=== PATIENT | male | born 1945 | race Hispanic/Latino ===

== ENCOUNTER 2018-02-15 21:00 | Emergency (ER) | payer OTHER ==
--- NOTE | 2018-02-15 21:56 | EDPHYS ---
Physician Documentation [facility] Name: Weston Garcia Age: 72 yrs Sex: Male : 1945 Arrival Date: 02/15/2018 Time: 21:00 Bed 6 Private MD: ED Physician Rubio Israel HPI: 02/15 21:52 This 72 yrs old Male presents to ER via Wheelchair with complaints of gs Constipation. 21:52 The patient presents to the emergency department with constipation. Onset: The gs symptoms/episode began/occurred 3 day(s) ago. 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 Modifying factors: The symptoms are alleviated by nothing, The symptoms are aggravated by nothing. Associate signs and symptoms: Pertinent negatives: abdominal pain, fever, vomiting. The patient has experienced similar episodes in the past, chronically. Historical: - Allergies: 21:19 Naproxen; lp1 - Home Meds: 21:19 Amitiza 8 mcg Oral cap 1 cap 2 times per day [Active]; aspirin 325 mg Oral tab 1 tab lp1 once daily [Active]; finasteride 5 mg Oral tab 1 tab once daily [Active]; gabapentin 300 mg Oral cap daily [Active]; Humulin 70/30 100 unit/mL (70-30) Sub-Q susp 40 unit twice a day [Active]; losartan 50 mg Oral tab 1 tab 2 times per day [Active]; metformin 1,000 mg Oral tab 1 tab 2 times per day [Active]; omeprazole 40 mg Oral cpDR 1 cap 2 times per day [Active]; tamsulosin 0.4 mg Oral cp24 1 cap once daily [Active]; pentoxifylline 400 mg oral TbER daily [Active]; - PMHx: 21:19 CVA; Diabetes - NIDDM; Hypertension; lp1 - PSHx: 21:19 Appendectomy; cataracts; amputations to right toes; lp1 - Immunization history:: Adult Immunizations up to date. - Social history:: Smoking status: Patient/guardian denies using tobacco. ROS: 21:52 All other systems are negative. gs Exam: 21:52 ENT: Nares patent. No nasal discharge, no septal abnormalities noted. Tympanic gs membranes are normal and external auditory canals are clear. Oropharynx with no redness, swelling, or masses, exudates, or evidence of obstruction, uvula midline. Mucous membranes moist. Cardiovascular: Regular rate and rhythm with a normal S1 and S2. No gallops, murmurs, or rubs. Normal PMI, no JVD. No pulse deficits. Respiratory: Lungs have equal breath sounds bilaterally, clear to auscultation and percussion. No rales, rhonchi or wheezes noted. No increased work of breathing, no retractions or nasal flaring. Abdomen/GI: Soft, non-tender, with normal bowel sounds. No distension or tympany. No guarding or rebound. No evidence of tenderness throughout. Back: No spinal tenderness. No costovertebral tenderness. Full range of motion. Skin: Warm, dry with normal turgor. Normal color with no rashes, no lesions, and no evidence of cellulitis. MS/ Extremity: Pulses equal, no cyanosis. Neurovascular intact. Full, normal range of motion. Neuro: Awake and alert, GCS 15, oriented to person, place, time, and situation. Cranial nerves II-XII grossly intact. Motor strength 5/5 in all extremities. Sensory grossly intact. Cerebellar exam normal. Normal gait. 21:52 Constitutional: The patient appears alert, awake. 21:52 Abdomen/GI: Rectal exam: Stool: brown, fecal impaction, is not appreciated. Vital Signs: 21:16 BP 160 / 85; Pulse 87; Resp 18; Temp 98.0(O); Pulse Ox 97% on R/A; Weight 102.06 kg; lp1 Height 5 ft. 9 in. (175.26 cm); 21:16 Body Mass Index 33.23 (102.06 kg, 175.26 cm) lp1 MDM: 21:47 Patient medically screened. gs 21:52 Differential diagnosis: constipation, impaction. Data reviewed: vital signs, nurses gs notes. Response to treatment: the patient's symptoms have markedly improved after treatment, and as a result, I will discharge patient. Administered Medications: No medications were administered Disposition: 02/15/18 21:56 Discharged to Home. Impression: Constipation. - Condition is Stable. - Discharge Instructions: Constipation, Adult, [id number]. - Medication Reconciliation Form, Thank You Letter, Antibiotic Education, Prescription Opioid Use form. - Follow up: Abdirizak Cortes MD; When: 1 - 2 days; Reason: Re-evaluation by your physician. Signatures: Tonya Scanlon RN RN lp1 Nicole Talbot RN RN tl2 Rubio Israel MD MD
--- NOTE | 2018-02-15 21:56 | ER ---
Nurse's Notes [facility] Name: Weston Garcia Age: 72 yrs Sex: Male : 1945 Arrival Date: 02/15/2018 Time: 21:00 Bed 6 Private MD: Diagnosis: Constipation Presentation: 02/15 21:14 Presenting complaint: Patient states: Constipation x3 days, hx of constipation; drank lp1 Mag citrate 3 hours ago with very small BM; continuing to feel bloated, abdomen distended. Transition of care: patient was not received from another setting of care. Onset of symptoms was February 15, 2018. Care prior to arrival: None. 21:14 Method Of Arrival: Wheelchair lp1 21:14 Acuity: GIRISH 3 lp1 Historical: - Allergies: 21:19 Naproxen; lp1 - Home Meds: 21:19 Amitiza 8 mcg Oral cap 1 cap 2 times per day [Active]; aspirin 325 mg Oral tab 1 tab lp1 once daily [Active]; finasteride 5 mg Oral tab 1 tab once daily [Active]; gabapentin 300 mg Oral cap daily [Active]; Humulin 70/30 100 unit/mL (70-30) Sub-Q susp 40 unit twice a day [Active]; losartan 50 mg Oral tab 1 tab 2 times per day [Active]; metformin 1,000 mg Oral tab 1 tab 2 times per day [Active]; omeprazole 40 mg Oral cpDR 1 cap 2 times per day [Active]; tamsulosin 0.4 mg Oral cp24 1 cap once daily [Active]; pentoxifylline 400 mg oral TbER daily [Active]; - PMHx: 21:19 CVA; Diabetes - NIDDM; Hypertension; lp1 - PSHx: 21:19 Appendectomy; cataracts; amputations to right toes; lp1 - Immunization history:: Adult Immunizations up to date. - Social history:: Smoking status: Patient/guardian denies using tobacco. Screenin:20 Abuse screen: Denies threats or abuse. Denies injuries from another. Nutritional lp1 screening: No deficits noted. Tuberculosis screening: No symptoms or risk factors identified. 21:40 Fall Risk None identified. bs1 Assessment: 21:33 General: Appears in no apparent distress. uncomfortable, Behavior is calm, cooperative, bs1 appropriate for age. Pain: Denies pain. Neuro: Level of Consciousness is awake, alert, obeys commands, Oriented to person, place, time. Cardiovascular: Denies chest pain, palpitations, shortness of breath, Heart tones S1 S2 present Capillary refill < 3 seconds Patient's skin is warm and dry. Respiratory: Airway is patent Trachea midline Respiratory effort is even, unlabored, Respiratory pattern is regular, symmetrical, Breath sounds are clear bilaterally. GI: Abdomen is round distended, Bowel sounds hypoactive in right upper quadrant, left upper quadrant, right lower quadrant and left lower quadrant Abd is non tender X 4 quads firm Reports gaseousness, Patient currently denies abdominal pain, diarrhea, epigastric pain, nausea, vomiting. : No deficits noted. No signs and/or symptoms were reported regarding the genitourinary system. EENT: No deficits noted. No signs and/or symptoms were reported regarding the EENT system. Derm: No deficits noted. No signs and/or symptoms reported regarding the dermatologic system. Derm: Musculoskeletal: Circulation, motion, and sensation intact. Capillary refill < 3 seconds, Range of motion: intact in all extremities. 22:01 Reassessment: Patient appears in no apparent distress at this time. Patient and/or tl2 family updated on plan of care and expected duration. Pain level reassessed. Patient is alert, oriented x 3, equal unlabored respirations, skin warm/dry/pink. Pt had a BM and is feeling better. Pt and family verbalized understanding of discharge instructions, need for follow up. Vital Signs: 21:16 BP 160 / 85; Pulse 87; Resp 18; Temp 98.0(O); Pulse Ox 97% on R/A; Weight 102.06 kg; lp1 Height 5 ft. 9 in. (175.26 cm); 21:16 Body Mass Index 33.23 (102.06 kg, 175.26 cm) lp1 ED Course: 21:00 Patient arrived in ED. ds1 21:16 Triage completed. lp1 21:16 Arm band placed on left wrist. lp1 21:33 Bonny Gillette RN is Primary Nurse. bs1 21:35 Rubio Israel MD is Attending Physician. gs 21:40 Patient has correct armband on for positive identification. Placed in gown. Bed in low bs1 position. Pulse ox on. NIBP on. 21:55 Abdirizak Cortes MD is Referral Physician. 22:01 No provider procedures requiring assistance completed. Patient did not have IV access tl2 during this emergency room visit. Administered Medications: No medications were administered Outcome: 21:56 Discharge ordered by . 22:01 Discharged to home via wheelchair. tl2 22:01 Condition: stable 22:01 Discharge instructions given to patient, family, Instructed on discharge instructions, follow up and referral plans. Demonstrated understanding of instructions, follow-up care. 22:08 Patient left the ED. tl2 Signatures: Nneka Boykin ds1 Tonya Scanlon, RN RN lp1 Nicole Talbot RN RN tl2 Rubio Israel MD MD Bonny Gillette RN RN bs1
[2018-02-15 22:18] VITALS: BP 160/85; TEMP 98; O2SAT 97
== END 2018-02-15 22:08 | disposition home or self-care (01) ==
LOC: ER 21:00
DX: K59.00 Constipation, unspecified (principal); I10 Essential (primary) hypertension; E11.9 Type 2 diabetes mellitus without complications; Z86.73 Personal history of transient ischemic attack (TIA), and cerebral infarction without residual deficits; Z79.82 Long term (current) use of aspirin; Z79.4 Long term (current) use of insulin; Z88.6 Allergy status to analgesic agent
CPT/HCPCS: 99283

== ENCOUNTER 2018-06-05 07:00 | Day surgery (SDC) | payer OTHER ==
--- NOTE | 2018-06-04 13:46 | RAD REPORT ---
EXAM DESCRIPTION: Bill Lugo (2 Views)06/04/2018 1:40 pm CLINICAL HISTORY: Hypertension/ preop for cardiac catheterization COMPARISON: 2017 FINDINGS: The lungs appear clear of acute infiltrate. The heart is mildly enlarged IMPRESSION: No acute abnormalities displayed
[2018-06-04 13:57] LABS: Absolute Lymphocytes (CBC) 2.3 K/uL (0.7-4.9); Absolute Monocytes 0.6 K/uL (0.1-1.3); Absolute Neutrophil 3.3 K/uL (1.8-8.0); Basophils % 0.5 % (0-1.3); Eosinophils % 3.3 % (0-4.4); Hematocrit 45.7 % (39.6-49.0); Lymphocytes % 35.3 % (15.3-44.8); MCH 31.9 pg (27.0-35.0); MCV 94.4 fL (80-100); MPV 8.3 fL (7.6-11.3); Monocytes % 9.4 % (3.3-12.3); RBC Red Blood Cell Count 4.85 M/uL (4.33-5.43)
[2018-06-04 14:05] LABS: Protime INR 0.94
[2018-06-04 14:11] LABS: Potassium 5.1 mmol/L (3.5-5.1)
--- NOTE | 2018-06-04 14:39 | EKG ---
Test Date: 2018-06-04 Test Time: 13:51:12 Technical Supervisor: GLEN MEASUREMENT RESULTS: Intervals: Rate: 72 MN: 164 QRSD: 106 QT: 376 QTc: 411 [place]: P: 40 MN: 164 QRS: -33 T: -57 INTERPRETIVE STATEMENTS: Normal sinus rhythm Left axis deviation Inferior infarct, age undetermined Abnormal ECG Compared to ECG 12/27/2016 09:33:43 No significant changes Electronically Signed On 06-04-18 14:39:13 CDT by Sharif Streeter
[2018-06-05] MEDS ORDERED: NA CHLORIDE 0.9% 500 ML ONE (07:23)
[2018-06-05] MEDS ORDERED: MIDAZOLAM HCL 2 MG/2 ML INJ ONE (08:17)
[2018-06-05] MEDS ORDERED: FENTANYL CITR 100 MCG/2 ML ONE (08:17)
[2018-06-05] MEDS ORDERED: ATROPINE SULF 1 MG/10 ML SYR IV ONE (08:18)
[2018-06-05] MEDS ORDERED: HEPA 1000U/500MLS 1,000 UNIT/500 ML BAG IV ONE (08:18)
[2018-06-05] MEDS ORDERED: NA CHLORIDE 0.9% 0 ML ONE (08:18)
[2018-06-05] MEDS ORDERED: LIDOCAINE 1% MPF 2 ML AMPULE ONE (08:19)
[2018-06-05] MEDS ORDERED: NA CHLORIDE 0.9% 0 ML IV ONE (08:51)
[2018-06-05] MEDS ORDERED: CLOPIDOGREL 75 MG TABLET ONE (09:10)
[2018-06-05 09:25] VITALS: TEMP 97
[2018-06-05 10:54] VITALS: BP 142/66; O2SAT 99
--- NOTE | 2018-06-05 18:27 | OP ---
Surgeon: Mehrdad Aguirre MD Wood Router Hand: Dolores Gomez. The case will be discussed with the family. The patient is a patient of Dr. Sharif. He is 73 years old. He was admitted to the hospital as an outp atient for left heart catheterization. Indication For The Procedure: Multiple risk factors including hypertension, diabetes, dyslipidemia, and positive stress test and chest pain. Description Of Procedure: Mr. Christensen was brought to the director labor standards, given 2 mg of Versed and 25 mg of f entanyl for IV sedation. A 6-Portuguese sheath was introduced in the right common femoral artery. A 6-F rench catheters were used, Tacho for diagnostic catheterization. He was found to have moderate dif fuse plaquing in the OM and LAD territory without any focal stenosis. His left main was normal. He had severe right coronary artery disease. Multiple sequential lesions, almost 6 of them with aneurys ms right at the stenosis areas pre-and poststenotic dilatation. Ejection fraction is noted to be 55% by Lexiscan. Complications: None. Blood Loss: 5 cc. Postoperative Diagnosis: Coronary artery disease, severe in the right coronary artery territory. Plan: Bring him back and do an angioplasty and stent on the RCA. He will require a long procedure, significant amount of contrast. He is a diabetic, and I did not want to risk his kidneys today. I w ill stage him, schedule next week for an intervention of his right coronary artery. He will be loade d on Plavix today 300 mg, given 75 mg daily of Plavix to take home. He will hold his Glucophage for 48 hours. Total Conscious Sedation: 30 minutes NB/MODL Voice ID: [id number] Report ID: [id number]
== END 2018-06-05 11:02 | disposition home or self-care (01) ==
LOC: CCL 07:00
PROC: 4A023N7 Measurement of Cardiac Sampling and Pressure, Left Heart, Percutaneous Approach (ICD-10-PCS; principal; 2018-06-05)
PROC: B211YZZ Fluoroscopy of Multiple Coronary Arteries using Other Contrast (ICD-10-PCS; 2018-06-05)
DX: I25.10 Atherosclerotic heart disease of native coronary artery without angina pectoris (principal); I70.213 Atherosclerosis of native arteries of extremities with intermittent claudication, bilateral legs; E11.9 Type 2 diabetes mellitus without complications; I25.5 Ischemic cardiomyopathy; I10 Essential (primary) hypertension; F17.210 Nicotine dependence, cigarettes, uncomplicated; E78.5 Hyperlipidemia, unspecified
CPT/HCPCS: 36415; 71046; 80048; 82962 ×2; 85025; 85610; 85730; 93005; 93454; C1893; J2001; J2250; J3010; J0583

== ENCOUNTER 2018-06-12 09:15 | Day surgery (SDC) | payer OTHER ==
[2018-06-12] MEDS ORDERED: NA CHLORIDE 0.9% 500 ML ONE ×2 (09:40→11:55)
[2018-06-12] MEDS ORDERED: ATROPINE SULF 1 MG/10 ML SYR IV ONE (12:51)
[2018-06-12] MEDS ORDERED: HEPA 1000U/500MLS 1,000 UNIT/500 ML BAG IV ONE (12:51)
[2018-06-12] MEDS ORDERED: NA CHLORIDE 0.9% 50 ML ONE ×2 (12:51→14:10)
[2018-06-12] MEDS ORDERED: MIDAZOLAM HCL 2 MG/2 ML INJ ONE (12:59)
[2018-06-12] MEDS ORDERED: FENTANYL CITR 100 MCG/2 ML ONE (12:59)
[2018-06-12] MEDS ORDERED: ASPIRIN 325 MG TAB ONE ×2 (14:25→14:26)
[2018-06-12] MEDS ORDERED: CLOPIDOGREL 75 MG TABLET ONE ×2 (14:25→14:26)
[2018-06-12] MEDS ORDERED: NITROGLYCERIN 0.4 MG/TAB SL PRN (15:35)
[2018-06-12] MEDS ORDERED: ACETAMINOPHEN 325 MG TABLET PO PRN (15:35)
[2018-06-12] MEDS: NA CHLORIDE 0.9% 1,000 ML IV SCH (16:16)
[2018-06-12 16:20] VITALS: BMI 38.4
[2018-06-12] MEDS ORDERED: MORPHINE 5 MG/ML VIAL IV PRN (20:15)
[2018-06-12] MEDS ORDERED: ZOLPIDEM TARTRATE 5 MG TABLET PO SCH (21:00)
[2018-06-13 05:02] LABS: Absolute Lymphocytes (CBC) 1.5 K/uL (0.7-4.9); Absolute Monocytes 0.6 K/uL (0.1-1.3); Absolute Neutrophil 5.2 K/uL (1.8-8.0); Basophils % 0.3 % (0-1.3); Eosinophils % 1.5 % (0-4.4); Hematocrit 43.2 % (39.6-49.0); Lymphocytes % 19.9 % (15.3-44.8); MCH 32.2 pg (27.0-35.0); MCV 92.3 fL (80-100); MPV 8.4 fL (7.6-11.3); Monocytes % 8.5 % (3.3-12.3); RBC Red Blood Cell Count 4.68 M/uL (4.33-5.43)
[2018-06-13 05:17] LABS: Potassium 4.3 mmol/L (3.5-5.1)
[2018-06-13] MEDS: NA CHLORIDE 0.9% 1,000 ML IV SCH ×2 (06:18→09:16)
[2018-06-13] MEDS ORDERED: LIDOCAINE 1% MPF 5 ML VIAL ONE (08:02)
[2018-06-13 08:06] VITALS: BP 115/54; TEMP 97.2
[2018-06-13] MEDS ORDERED: ASPIRIN EC 81 MG TAB PO SCH (09:00)
[2018-06-13] MEDS ORDERED: CLOPIDOGREL 75 MG TABLET PO SCH (09:00)
[2018-06-13 09:31] VITALS: O2SAT 97
--- NOTE | 2018-06-13 12:36 | DS ---
Discharge Diagnosis: Unstable angina. Hospital Course: He had several intracoronary stents placed in his right coronary artery. He has do ne well overnight, not having chest pain. No groin problems. Vital signs are okay. He will be disc harged today. We will hold his metformin for 2 days, resume it on June 15. He will be on Plavix. He will stop taking omeprazole because of its ability to inactivate Plavix. He will be on aspirin and Plavix, a large dose statin. Resume all of his medications, except as outlined above. LISA Voice ID: [id number] Report ID: [id number]
--- NOTE | 2018-06-13 14:36 | EKG ---
Test Date: 2018-06-13 Test Time: 07:25:40 Data Sme: BILLY MEASUREMENT RESULTS: Intervals: Rate: 82 MD: 164 QRSD: 98 QT: 376 QTc: 439 [place]: P: 48 MD: 164 QRS: -24 T: -29 INTERPRETIVE STATEMENTS: Sinus rhythm with occasional premature ventricular complexes Inferior infarct, age undetermined Abnormal ECG Compared to ECG 06/04/2018 13:51:12 Ventricular premature complex(es) now present Left-axis deviation no longer present Myocardial infarct finding still present Electronically Signed On 06-13-18 14:34:52 CDT by Sharif Streeter
--- NOTE | 2018-06-13 17:03 | OP ---
Surgeon: Mehrdad Aguirre MD Book Repairer: Carlos Fleming The patient will be observed overnight and sent home tomorrow and I will see him in the office in 2 w eeks. Indications And Procedure: Admitted to myself as an outpatient for catheterization to include a RCA stent. The patient is a 73-year-old, had a catheterization last week showing severe stenosis in the RCA and multiple lesions. I did not want to do the procedure then because of possible high load of t he contrast. He was scheduled to come back for RCA stent today. He was prepped and draped in the ro utine sterile fashion, given 2 mg of Versed for IV sedation. A 6-Persian sheath was introduced in the right common femoral artery. A JR4 guide 6-Persian with side hole cannula was used to cannulate the RCA. A [place] wire was used to cross the lesions. He had 3 stents placed, 1 in the distal RCA, 1 in the mid RCA, and 1 in the proximal RCA. The proximal RCA and mid RCA stents were stented with 3.5 x 16 Synergy stent and distal was 3.0 x 16 Synergy as well with 0% residual. The patient tolerated th e procedure well. There were no complications. Blood loss was 5 cc. Total conscious sedation was 6 0 minutes. The patient received Angiomax during the procedure, aspirin as well as 300 mg of Plavix. Final Diagnosis: Coronary artery disease, status post successful PTCA and stent of the RCA. Angiopl asty was performed with a 2.5 x 15 Emerge balloon throughout the RCA prior to stenting. Neonatal Critical Care Nurse: Mehrdad Aguirre MD. DULCE/EARL Voice ID: [id number] Report ID: [id number]
== END 2018-06-13 10:42 | disposition home or self-care (01) ==
LOC: CCL 09:15 → 4TH 14:49 → CCL 06-13 10:42
PROC: 027036Z Dilation of Coronary Artery, One Artery with Three Drug-eluting Intraluminal Devices, Percutaneous Approach (ICD-10-PCS; principal; 2018-06-12)
DX: I25.110 Atherosclerotic heart disease of native coronary artery with unstable angina pectoris (principal); E11.9 Type 2 diabetes mellitus without complications; I10 Essential (primary) hypertension; F17.210 Nicotine dependence, cigarettes, uncomplicated; I25.5 Ischemic cardiomyopathy; I70.213 Atherosclerosis of native arteries of extremities with intermittent claudication, bilateral legs; K21.9 Gastro-esophageal reflux disease without esophagitis; Z79.84 Long term (current) use of oral hypoglycemic drugs
CPT/HCPCS: 36415; 80048; 80061; 82962 ×4; 85025; 85347 ×2; 92928; 93005; C1725; C1760; C1893; C9600; J0583 ×2; J2250; J3010; J7030

== ENCOUNTER 2018-06-19 12:24 | Emergency (ER) | payer OTHER ==
[2018-06-19 14:11] LABS: Albumin 3.1 g/dL (3.4-5.0); Bilirubin Direct 0.1 mg/dL (0-0.2); Bilirubin Total 0.4 mg/dL (0.2-1.0); Potassium 4.8 mmol/L (3.5-5.1); Protein, Total 6.9 g/dL (6.4-8.2)
[2018-06-19 14:30] LABS: Absolute Lymphocytes (CBC) 1.2 K/uL (0.7-4.9); Absolute Monocytes 0.6 K/uL (0.1-1.3); Absolute Neutrophil 5.8 K/uL (1.8-8.0); Basophils % 0.3 % (0-1.3); Eosinophils % 2.2 % (0-4.4); Hematocrit 43.8 % (39.6-49.0); Lymphocytes % 15.9 % (15.3-44.8); MCH 32.2 pg (27.0-35.0); MCV 94.8 fL (80-100); MPV 8.8 fL (7.6-11.3); Monocytes % 7.4 % (3.3-12.3); RBC Red Blood Cell Count 4.62 M/uL (4.33-5.43)
[2018-06-19] MEDS ORDERED: NA CHLORIDE 0.9% 1,000 ML ONE (15:04)
[2018-06-19] MEDS ORDERED: INSULIN -REGULAR HUMAN 50 UNIT/0.5 ML ML ONE (15:04)
--- NOTE | 2018-06-19 16:06 | EDPHYS ---
Physician Documentation [facility] Name: Weston Garcia Age: 73 yrs Sex: Male : 1945 Arrival Date: 06/19/2018 Time: 12:28 Bed 24 Private MD: Raymundo Perez ED Physician Myke Gee HPI: 06/19 13:26 This 73 yrs old Male presents to ER via Wheelchair with complaints of High jr8 Blood Sugar. 13:26 Onset: The symptoms/episode began/occurred acutely, today. Associated signs and jr8 symptoms: Pertinent positives: fatigue, dizziness, headache . Current symptoms: In the emergency department the patient's symptoms are unchanged from the initial presentation. The patient has not experienced similar symptoms in the past. The patient has been recently seen by a physician: with different complaint(s). Patient had recent stents placed last week. Stated that he had been doing well. Sugars markedly elevated compared to what they normally run today. Has had some dizziness, headache, fatigue. Denies CP or shortness of breath . 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 - Social history:: Smoking status: Patient/guardian denies using tobacco. - Ebola Screening: : No symptoms or risks identified at this time. ROS: 13:26 Eyes: Negative for injury, pain, redness, and discharge, ENT: Negative for injury, jr8 pain, and discharge, Neck: Negative for injury, pain, and swelling, Cardiovascular: Negative for chest pain, palpitations, and edema, Respiratory: Negative for shortness of breath, cough, wheezing, and pleuritic chest pain, Abdomen/GI: Negative for abdominal pain, nausea, vomiting, diarrhea, and constipation, Back: Negative for injury and pain, MS/Extremity: Negative for injury and deformity, Skin: Negative for injury, rash, and discoloration. 13:26 Constitutional: Positive for fatigue, Negative for body aches, chills, fever, malaise, poor PO intake, weight loss. 13:26 Neuro: Positive for dizziness, headache, Negative for altered mental status, gait disturbance, hearing loss, loss of consciousness, numbness, seizure activity, speech changes, syncope, near syncope, tingling, tinnitus, tremor, visual changes, weakness. Exam: 13:26 Eyes: Pupils equal round and reactive to light, extra-ocular motions intact. Lids and jr8 lashes normal. Conjunctiva and sclera are non-icteric and not injected. Cornea within normal limits. Periorbital areas with no swelling, redness, or edema. ENT: Nares patent. No nasal discharge, no septal abnormalities noted. Tympanic membranes are normal and external auditory canals are clear. Oropharynx with no redness, swelling, or masses, exudates, or evidence of obstruction, uvula midline. Mucous membranes moist. Neck: Trachea midline, no thyromegaly or masses palpated, and no cervical lymphadenopathy. Supple, full range of motion without nuchal rigidity, or vertebral point tenderness. No Meningismus. Cardiovascular: Regular rate and rhythm with a normal S1 and S2. No gallops, murmurs, or rubs. Normal PMI, no JVD. No pulse deficits. 1+ pitting edema noted to lower extremities Respiratory: Lungs have equal breath sounds bilaterally, clear to auscultation and percussion. No rales, rhonchi or wheezes noted. No increased work of breathing, no retractions or nasal flaring. Abdomen/GI: Soft, non-tender, with normal bowel sounds. No distension or tympany. No guarding or rebound. No evidence of tenderness throughout. Back: No spinal tenderness. No costovertebral tenderness. Full range of motion. Skin: Warm, dry with normal turgor. Normal color with no rashes, no lesions, and no evidence of cellulitis. MS/ Extremity: Pulses equal, no cyanosis. Neurovascular intact. Full, normal range of motion. Neuro: Awake and alert, GCS 15, oriented to person, place, time, and situation. Cranial nerves II-XII grossly intact. Motor strength 5/5 in all extremities. Sensory grossly intact. Cerebellar exam normal. Normal gait. Vital Signs: 12:39 BP 115 / 73; Pulse 72; Resp 15; Temp 98.1; Pulse Ox 100% on R/A; Pain 5/10; hb 13:02 BP 118 / 61 LA Supine (auto/); Pulse 81; Temp 98.1; Pulse Ox 93% on R/A; jp3 14:00 BP 125 / 67 LA Sitting (auto/reg); Pulse 75; Resp 16; Pulse Ox 95% ; jp3 15:11 BP 131 / 76; Pulse 69; Resp 16; Pulse Ox 98% on R/A; kr2 16:25 BP 122 / 71; Pulse 66; Resp 17; Pulse Ox 97% on R/A; kr2 MDM: 13:23 Patient medically screened. [facility] 16:04 Data reviewed: vital signs, nurses notes, lab test result(s), and as a result, I will jr8 discharge patient. Data interpreted: Pulse oximetry: on room air is 98 %. Interpretation: normal. Counseling: I had a detailed discussion with the patient and/or guardian regarding: the historical points, exam findings, and any diagnostic results supporting the discharge/admit diagnosis, lab results, the need for outpatient follow up, a family practitioner, to return to the emergency department if symptoms worsen or persist or if there are any questions or concerns that arise at home. Response to treatment: the patient's symptoms have markedly improved after treatment, patient is well hydrated. 06/19 13:23 Order name: Basic Metabolic Panel [facility] 06/19 13:23 Order name: CBC with Diff 06/19 13:23 Order name: Creatinine for Radiology [facility] 06/19 13:23 Order name: Hepatic Function [facility] 06/19 14:11 Order name: Basic Metabolic Panel; Complete Time: 14:51 EDMS 06/19 14:11 Order name: Liver (Hepatic) Function; Complete Time: 14:51 EDMS 06/19 13:23 Order name: IV Saline Lock; Complete Time: 14:09 [facility] 06/19 13:23 Order name: Labs collected and sent; Complete Time: 14:09 [facility] 06/19 14:11 Order name: Creatinine (Radiology Only); Complete Time: 14:51 EDMS 06/19 14:32 Order name: CBC with Automated Diff; Complete Time: 14:51 EDMS 06/19 15:17 Order name: Glucose, Ancillary Testing; Complete Time: 15:23 EDMS 06/19 13:23 Order name: Glucose Level; Complete Time: 14:09 [facility] Administered Medications: 15:04 Drug: NS 0.9% 1000 ml Route: IV; Rate: 1000 ml; Site: right antecubital; kr2 16:15 Follow up: Response: No adverse reaction; IV Status: Completed infusion kr2 15:04 Drug: Insulin Regular Human 10 units {Co-Signature: gerri (Milton Carr RN).} Route: kr2 IVP; Site: right antecubital; 15:35 Follow up: Response: No adverse reaction; Blood sugar is lowered kr2 Point of Care Testing: Blood Glucose: 12:37 Blood Glucose: 314 mg/dL; hb 15:34 Blood Glucose: 211 mg/dL; kr2 Ranges: Critical Glucose Levels:Adult <50 mg/dl or >400 mg/dl <40 mg/dl or >180 mg/dl Disposition: 19:06 Co-signature as Attending Physician, Myke Gee MD. rn Disposition: 06/19/18 16:05 Discharged to Home. Impression: Type 2 diabetes mellitus with hyperglycemia. - Condition is Stable. - Discharge Instructions: Type 2 Diabetes Mellitus, Diagnosis, Adult, Hyperglycemia. - Medication Reconciliation Form, Thank You Letter, Antibiotic Education, Prescription Opioid Use form. - Follow up: Private Physician; When: 2 - 3 days; Reason: Recheck today's complaints, Continuance of care, Re-evaluation by your physician. - Problem is new. - Symptoms have improved. Signatures: Dispatcher [employer] EDMS Myke Gee MD MD rn Roszak, Josh, PA PA jr8 Malika Reyes RN RN Kika Nance RN RN kr2 Milton Carr RN rv Corrections: (The following items were deleted from the chart) 16:26 16:05 06/19/2018 16:05 Discharged to Home. Impression: Type 2 diabetes mellitus with kr2 hyperglycemia. Condition is Stable. Forms are Medication Reconciliation Form, Thank You Letter, Antibiotic Education, Prescription Opioid Use. Follow up: Private Physician; When: 2 - 3 days; Reason: Recheck today's complaints, Continuance of care, Re-evaluation by your physician. Problem is new. Symptoms have improved. jr8
--- NOTE | 2018-06-19 16:06 | ER ---
Nurse's Notes [facility] Name: Weston Garcia Age: 73 yrs Sex: Male : 1945 Arrival Date: 06/19/2018 Time: 12:28 Bed 24 Private MD: Raymundo Perez Diagnosis: Type 2 diabetes mellitus with hyperglycemia Presentation: 06/19 12:37 Presenting complaint: Patient states: Home BGL reading 333. Pt reports he "just doesn't hb feel well" and has headache. Transition of care: patient was not received from another setting of care. Onset of symptoms was June 19, 2018 at 11:00. Risk Assessment: Do you want to hurt yourself or someone else? Patient reports no desire to harm self or others. 12:37 Method Of Arrival: Wheelchair hb 12:37 Acuity: GIRISH 3 hb 14:20 Initial Sepsis Screen: Does the patient meet any 2 criteria? No. Patient's initial kr2 sepsis screen is negative. Does the patient have a suspected source of infection? No. Patient's initial sepsis screen is negative. Care prior to arrival: None. 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 - Social history:: Smoking status: Patient/guardian denies using tobacco. - Ebola Screening: : No symptoms or risks identified at this time. Screenin:18 Abuse screen: Denies threats or abuse. Denies injuries from another. Nutritional ss screening: No deficits noted. Tuberculosis screening: Never had TB. Fall Risk None identified. Assessment: 13:16 General: Appears in no apparent distress. comfortable, Behavior is calm, cooperative, ss Denies fever, chills. General: and daughter report that patient's blood sugar has been elevated since yesterday. . Pain: Denies pain. Neuro: Level of Consciousness is awake, alert, obeys commands. Cardiovascular: Heart tones S1 S2 present Capillary refill < 3 seconds is brisk in bilateral fingers Patient's skin is warm and dry. Respiratory: Breath sounds are clear in right upper lobe, left upper lobe, right middle lobe, left posterior upper lobe, right posterior upper lobe, left posterior lower lobe and right posterior middle lobe Breath sounds are diminished in right posterior lower lobe Denies cough, shortness of breath. GI: Abdomen is round non-distended. : No signs and/or symptoms were reported regarding the genitourinary system. EENT: Nares are clear. Derm: Skin is intact, is healthy with good turgor, Skin is dry, Skin is pink, warm \\T\\ dry. normal. Musculoskeletal: Circulation, motion, and sensation intact. Range of motion: intact in all extremities, Swelling absent. 14:15 Reassessment: Patient appears in no apparent distress at this time. Patient and/or kr2 family updated on plan of care and expected duration. Pain level reassessed. Patient is alert, oriented x 3, equal unlabored respirations, skin warm/dry/pink. 15:10 Reassessment: Patient appears in no apparent distress at this time. Patient and/or kr2 family updated on plan of care and expected duration. Pain level reassessed. Patient is alert, oriented x 3, equal unlabored respirations, skin warm/dry/pink. Patient denies pain at this time. 16:25 Reassessment: Patient appears in no apparent distress at this time. Patient and/or kr2 family updated on plan of care and expected duration. Pain level reassessed. Patient is alert, oriented x 3, equal unlabored respirations, skin warm/dry/pink. Patient denies pain at this time. Patient states feeling better. Patient states symptoms have improved. Vital Signs: 12:39 BP 115 / 73; Pulse 72; Resp 15; Temp 98.1; Pulse Ox 100% on R/A; Pain 5/10; hb 13:02 BP 118 / 61 LA Supine (auto/); Pulse 81; Temp 98.1; Pulse Ox 93% on R/A; jp3 14:00 BP 125 / 67 LA Sitting (auto/reg); Pulse 75; Resp 16; Pulse Ox 95% ; jp3 15:11 BP 131 / 76; Pulse 69; Resp 16; Pulse Ox 98% on R/A; kr2 16:25 BP 122 / 71; Pulse 66; Resp 17; Pulse Ox 97% on R/A; kr2 ED Course: 12:28 Patient arrived in ED. sb2 12:28 Prezas, Raymundo, DO is Private Physician. sb2 12:38 Triage completed. hb 12:39 Arm band placed on right wrist. hb 13:00 Kika Lanier, RN is Primary Nurse. kr2 13:07 Dany Rea PA is PHCP. jr8 13:07 Myke Gee MD is Attending Physician. jr8 13:18 Patient has correct armband on for positive identification. Bed in low position. Call ss light in reach. 13:18 Inserted saline lock: 20 gauge in right antecubital area, using aseptic technique. ss Blood collected. 13:48 Pulse ox on. NIBP on. jp3 14:39 Basic Metabolic Panel Sent. jp3 14:39 CBC with Diff Sent. jp3 14:39 Creatinine for Radiology Sent. jp3 14:39 Hepatic Function Sent. jp3 16:26 No provider procedures requiring assistance completed. IV discontinued, intact, kr2 bleeding controlled, No redness/swelling at site. Pressure dressing applied. Administered Medications: 15:04 Drug: NS 0.9% 1000 ml Route: IV; Rate: 1000 ml; Site: right antecubital; kr2 16:15 Follow up: Response: No adverse reaction; IV Status: Completed infusion kr2 15:04 Drug: Insulin Regular Human 10 units {Co-Signature: gerri (Milton Carr RN).} Route: kr2 IVP; Site: right antecubital; 15:35 Follow up: Response: No adverse reaction; Blood sugar is lowered kr2 Point of Care Testing: Blood Glucose: 12:37 Blood Glucose: 314 mg/dL; hb 15:34 Blood Glucose: 211 mg/dL; kr2 Ranges: Outcome: 16:05 Discharge ordered by . jr8 16:26 Discharged to home via wheelchair, with family. kr2 16:26 Condition: good 16:26 Discharge instructions given to patient, family, Instructed on discharge instructions, follow up and referral plans. medication usage, Demonstrated understanding of instructions, follow-up care, medications. 16:26 Patient left the ED. kr2 Signatures: Lisa Oliveira RN RN Dany Rea PA PA jr8 Malika Reyes RN RN Kika Lanier, KEILA PEDRAZA kr2 Henrietta Frazier sb2 Melvin Brennan jp3 Milton Bruno RN rv
[2018-06-19 16:30] VITALS: TEMP 98.1
[2018-06-19 16:34] VITALS: BP 122/71; O2SAT 97
== END 2018-06-19 16:26 | disposition home or self-care (01) ==
LOC: ER 12:24
DX: E11.65 Type 2 diabetes mellitus with hyperglycemia (principal); I10 Essential (primary) hypertension; Z88.6 Allergy status to analgesic agent
CPT/HCPCS: 36415; 80048; 80076; 82962 ×2; 85025; J7030; 96361; 96374; 99284

== ENCOUNTER 2018-06-26 16:22 | Observation (INO) | payer OTHER ==
[2018-06-26 18:51] LABS: Absolute Monocytes 0.7 K/uL (0.1-1.3); Absolute Neutrophil 4.6 K/uL (1.8-8.0); Basophils % 0.4 % (0-1.3); Hematocrit 43.6 % (39.6-49.0); Lymphocytes % 26.7 % (15.3-44.8); MCH 32.2 pg (27.0-35.0); MCV 95.6 fL (80-100); MPV 8.2 fL (7.6-11.3); RBC Red Blood Cell Count 4.56 M/uL (4.33-5.43)
[2018-06-26] MEDS ORDERED: NA CHLORIDE 0.9% 1,000 ML ONE (18:54)
[2018-06-26 19:04] LABS: Protime INR 0.97
--- NOTE | 2018-06-26 19:07 | EDPHYS ---
Physician Documentation [facility] Name: Weston Garcia Age: 73 yrs Sex: Male : 1945 Arrival Date: 06/26/2018 Time: 16:25 Bed 5 Private MD: Bud Sharif H ED Physician Sam Chaudhary HPI: 06/26 19:04 This 73 yrs old Male presents to ER via Wheelchair with complaints of High jm Blood Sugar. 19:04 The patient or guardian reports hyperglycemia, that was potentially precipitated by no jm particular event. Onset: The symptoms/episode began/occurred 2 day(s) ago. Associated signs and symptoms: Pertinent positives: None. Pertinent negatives: polydipsia, polyuria. Current symptoms: In the emergency department the patient's symptoms are unchanged from the initial presentation. The patient has not experienced similar symptoms in the past. Historical: - Allergies: 16:51 Naproxen; aj1 - Home Meds: 16:51 Amitiza 8 mcg Oral cap 1 cap 2 times per day [Active]; aspirin 325 mg Oral tab 1 tab aj1 once daily [Active]; finasteride 5 mg Oral tab 1 tab once daily [Active]; gabapentin 300 mg Oral cap daily [Active]; Plavix 75 mg oral tab 1 tab once daily [Active]; Humulin 70/30 100 unit/mL (70-30) Sub-Q susp 40 unit twice a day [Active]; losartan 50 mg Oral tab 1 tab 2 times per day [Active]; metformin 1,000 mg Oral tab 1 tab 2 times per day [Active]; omeprazole 40 mg Oral cpDR 1 cap 2 times per day [Active]; pentoxifylline 400 mg Oral TbER daily [Active]; tamsulosin 0.4 mg Oral cp24 1 cap once daily [Active]; - PMHx: 16:51 CVA; Diabetes - NIDDM; Hypertension; aj1 - PSHx: 16:51 cardiac stent; aj1 - Immunization history:: Flu vaccine is up to date. - Social history:: Smoking status: Patient/guardian denies using tobacco. - Ebola Screening: : Patient denies travel to an Ebola-affected area in the 21 days before illness onset. - Family history:: not pertinent. ROS: 19:04 Constitutional: Negative for fever, chills, and weight loss, Eyes: Negative for injury, jm pain, redness, and discharge, ENT: Negative for injury, pain, and discharge, Neck: Negative for injury, pain, and swelling, Cardiovascular: Negative for chest pain, palpitations, and edema, Respiratory: Negative for shortness of breath, cough, wheezing, and pleuritic chest pain, Abdomen/GI: Negative for abdominal pain, nausea, vomiting, diarrhea, and constipation, Back: Negative for injury and pain, : Negative for injury, bleeding, discharge, and swelling, MS/Extremity: Negative for injury and deformity, Skin: Negative for injury, rash, and discoloration, Psych: Negative for depression, anxiety, suicide ideation, homicidal ideation, and hallucinations, Allergy/Immunology: Negative for hives, rash, and allergies, Endocrine: Negative for neck swelling, polydipsia, polyuria, polyphagia, and marked weight changes, Hematologic/Lymphatic: Negative for swollen nodes, abnormal bleeding, and unusual bruising. Exam: 19:04 Constitutional: This is a well developed, well nourished patient who is awake, alert, jm and in no acute distress. Head/Face: Normocephalic, atraumatic. Eyes: Pupils equal round and reactive to light, extra-ocular motions intact. Lids and lashes normal. Conjunctiva and sclera are non-icteric and not injected. Cornea within normal limits. Periorbital areas with no swelling, redness, or edema. ENT: Nares patent. No nasal discharge, no septal abnormalities noted. Tympanic membranes are normal and external auditory canals are clear. Oropharynx with no redness, swelling, or masses, exudates, or evidence of obstruction, uvula midline. Mucous membranes moist. Neck: Trachea midline, no thyromegaly or masses palpated, and no cervical lymphadenopathy. Supple, full range of motion without nuchal rigidity, or vertebral point tenderness. No Meningismus. Chest/axilla: Normal chest wall appearance and motion. Nontender with no deformity. No lesions are appreciated. Cardiovascular: Regular rate and rhythm with a normal S1 and S2. No gallops, murmurs, or rubs. Normal PMI, no JVD. No pulse deficits. Respiratory: Lungs have equal breath sounds bilaterally, clear to auscultation and percussion. No rales, rhonchi or wheezes noted. No increased work of breathing, no retractions or nasal flaring. Abdomen/GI: Soft, non-tender, with normal bowel sounds. No distension or tympany. No guarding or rebound. No evidence of tenderness throughout. Back: No spinal tenderness. No costovertebral tenderness. Full range of motion. Skin: Warm, dry with normal turgor. Normal color with no rashes, no lesions, and no evidence of cellulitis. MS/ Extremity: Pulses equal, no cyanosis. Neurovascular intact. Full, normal range of motion. Neuro: Awake and alert, GCS 15, oriented to person, place, time, and situation. Cranial nerves II-XII grossly intact. Motor strength 5/5 in all extremities. Sensory grossly intact. Cerebellar exam normal. Normal gait. Psych: Awake, alert, with orientation to person, place and time. Behavior, mood, and affect are within normal limits. Vital Signs: 16:51 BP 131 / 72; Pulse 80; Resp 20; Temp 98.4; Pulse Ox 95% on R/A; Weight 117.93 kg (R); aj1 Height 5 ft. 9 in. (175.26 cm) (R); Pain 0/10; 18:40 BP 145 / 86; Pulse 78; Resp 16; Pulse Ox 98% on R/A; ss 19:06 BP 145 / 86; Pulse 72; Resp 17 S; Pulse Ox 96% on R/A; jd3 20:11 BP 144 / 82; Pulse 73; Resp 18 S; Pulse Ox 97% on R/A; jd3 16:51 Body Mass Index 38.39 (117.93 kg, 175.26 cm) [facility] MDM: 18:04 Patient medically screened. [facility] 19:23 Data reviewed: vital signs, nurses notes, lab test result(s), EKG, radiologic studies, jm plain films. 06/26 18:06 Order name: Basic Metabolic Panel; Complete Time: :22 [facility] 06/26 18:06 Order name: CBC with Diff; Complete Time: 19:02 [facility] 06/26 18:06 Order name: Ckmb; Complete Time: :22 [facility] 06/26 18:06 Order name: CPK; Complete Time: :22 [facility] 06/26 18:06 Order name: LFT's; Complete Time: : [facility] 06/26 18:06 Order name: Magnesium; Complete Time: 19:22 [facility] 06/26 18:06 Order name: NT PRO-BNP; Complete Time: 19:22 [facility] 06/26 18:06 Order name: PT-INR; Complete Time: 19:15 [facility] 06/26 18:06 Order name: Ptt, Activated; Complete Time: 19:15 [facility] 06/26 18:06 Order name: Troponin (emerg Dept Use Only); Complete Time: 19:17 [facility] 06/26 18:06 Order name: Urine Culture [facility] 06/26 18:06 Order name: Lipase; Complete Time: 19:22 [facility] 06/26 18:06 Order name: Blood Culture Adult (2) [facility] 06/26 20:10 Order name: Urine Dipstick--Ancillary (enter results) rg2 06/26 18:06 Order name: XRAY Chest (1 view) [facility] 06/26 18:06 Order name: EKG; Complete Time: 18:07 [facility] 06/26 18:06 Order name: Cardiac monitoring; Complete Time: 18:48 [facility] 06/26 18:06 Order name: EKG - Nurse/Tech; Complete Time: 19:14 [facility] 06/26 18:06 Order name: IV Saline Lock; Complete Time: 18:48 [facility] 06/26 18:06 Order name: Labs collected and sent; Complete Time: 18:48 [facility] 06/26 18:06 Order name: O2 Per Protocol; Complete Time: 18:48 [facility] 06/26 18:06 Order name: O2 Sat Monitoring; Complete Time: 18:48 [facility] 06/26 18:06 Order name: Urine Dipstick-Ancillary (obtain specimen); Complete Time: 20:14 [facility] 06/26 20:22 Order name: Urine Dipstick-Ancillary EDMS Administered Medications: 18:47 Drug: NS 0.9% 1000 ml Route: IV; Rate: 1 bolus; Site: right antecubital; ss 20:09 Follow up: Response: No adverse reaction; IV Status: Completed infusion; IV Intake: jd3 1000ml 19:23 Drug: Levemir 100 unit/mL 40 units Route: Sub-Q; Site: abdomen; jd3 20:28 Follow up: Response: No adverse reaction jd3 Point of Care Testing: Blood Glucose: 20:33 Blood Glucose: 247 mg/dL; jd3 Ranges: Critical Glucose Levels:Adult <50 mg/dl or >400 mg/dl <40 mg/dl or >180 mg/dl Disposition: 06/26/18 19:06 Hospitalization ordered by Rudy Raman for Observation. Preliminary diagnosis are Hyperglycemia, unspecified, Type 2 diabetes mellitus - uncontrolled. - Bed requested for Telemetry/MedSurg (observation). - Status is Observation. jd3 - Condition is Stable. - Problem is new. - Symptoms have improved. UTI on Admission? No Signatures: Dispatcher [employer] EDIN Evon Phillips rg2 Teri Crain RN RN aj1 Sam Chaudhary MD MD cha Smirch, Shelby, RN RN ss Daniel Villanueva RN RN jd3 Corrections: (The following items were deleted from the chart) 20:21 19:06 Hospitalization Ordered by Rudy Raman MD for Observation. Preliminary rg2 diagnosis is Hyperglycemia, unspecified; Type 2 diabetes mellitus - uncontrolled. Bed requested for Telemetry/MedSurg (observation). Status is Observation. Condition is Stable. Problem is new. Symptoms have improved. UTI on Admission? No. [facility] 20:39 20:21 06/26/2018 19:06 Hospitalization Ordered by Rudy Raman MD for Observation. jd3 Preliminary diagnosis is Hyperglycemia, unspecified; Type 2 diabetes mellitus - uncontrolled. Bed requested for Telemetry/MedSurg (observation). Status is Observation. Condition is Stable. Problem is new. Symptoms have improved. UTI on Admission? No. rg2
--- NOTE | 2018-06-26 19:07 | ER ---
Nurse's Notes [facility] Name: Weston Garcia Age: 73 yrs Sex: Male : 1945 Arrival Date: 06/26/2018 Time: 16:25 Bed 5 Private MD: Bud Sharif H Diagnosis: Hyperglycemia, unspecified;Type 2 diabetes mellitus-uncontrolled Presentation: 06/26 16:45 Presenting complaint: Child states: They were seen here one week ago for high blood aj1 sugar, his blood sugar was lowered in the ED and then patient was discharged home. Today he is back for the same thing. FSBS at home was 362. Patient has appointment to follow up with his PHCP July 02. Denies N/V/D. Family reports that he has been acting confused and forgetful at home. Transition of care: patient was not received from another setting of care. Onset of symptoms was June 26, 2018. Risk Assessment: Do you want to hurt yourself or someone else? Patient reports no desire to harm self or others. Initial Sepsis Screen: Does the patient meet any 2 criteria? No. Patient's initial sepsis screen is negative. Does the patient have a suspected source of infection? No. Patient's initial sepsis screen is negative. Care prior to arrival: None. 16:45 Method Of Arrival: Wheelchair aj1 16:45 Acuity: GIRISH 3 aj1 Triage Assessment: 16:51 General: Appears in no apparent distress. comfortable, Behavior is calm, cooperative, aj1 appropriate for age. Pain: Denies pain. Neuro: Level of Consciousness is awake, alert, obeys commands, Oriented to person, place, time, situation. Cardiovascular: Patient's skin is warm and dry. Respiratory: Airway is patent Respiratory effort is even, unlabored, Respiratory pattern is regular, symmetrical. Historical: - Allergies: 16:51 Naproxen; aj1 - Home Meds: 16:51 Amitiza 8 mcg Oral cap 1 cap 2 times per day [Active]; aspirin 325 mg Oral tab 1 tab aj1 once daily [Active]; finasteride 5 mg Oral tab 1 tab once daily [Active]; gabapentin 300 mg Oral cap daily [Active]; Plavix 75 mg oral tab 1 tab once daily [Active]; Humulin 70/30 100 unit/mL (70-30) Sub-Q susp 40 unit twice a day [Active]; losartan 50 mg Oral tab 1 tab 2 times per day [Active]; metformin 1,000 mg Oral tab 1 tab 2 times per day [Active]; omeprazole 40 mg Oral cpDR 1 cap 2 times per day [Active]; pentoxifylline 400 mg Oral TbER daily [Active]; tamsulosin 0.4 mg Oral cp24 1 cap once daily [Active]; - PMHx: 16:51 CVA; Diabetes - NIDDM; Hypertension; aj1 - PSHx: 16:51 cardiac stent; aj1 - Immunization history:: Flu vaccine is up to date. - Social history:: Smoking status: Patient/guardian denies using tobacco. - Ebola Screening: : Patient denies travel to an Ebola-affected area in the 21 days before illness onset. - Family history:: not pertinent. Screenin:43 Abuse screen: Denies threats or abuse. Denies injuries from another. Nutritional ss screening: No deficits noted. Tuberculosis screening: Has had TB. Fall Risk None identified. Assessment: 18:40 General: Appears in no apparent distress. comfortable, Behavior is calm, cooperative, ss Reports elevated blood sugar levels x "a few days". Seen recently for the same thing and discharged home. Denies fever, feeling ill, fatigue, chills. Pain: Denies pain. Neuro: Level of Consciousness is awake, alert, obeys commands, Oriented to person, place, time, situation, Moves all extremities. Speech is normal, Facial symmetry appears normal, Pupils are PERRLA. Cardiovascular: Capillary refill < 3 seconds is brisk in bilateral fingers. Respiratory: Airway is patent Respiratory effort is even, unlabored, Respiratory pattern is regular, symmetrical. GI: Patient currently denies diarrhea, nausea, vomiting. : No signs and/or symptoms were reported regarding the genitourinary system. EENT: Nares are clear Oral mucosa is moist. Derm: Skin is pink, warm \\T\\ dry. normal. Musculoskeletal: Circulation, motion, and sensation intact. Range of motion: intact in all extremities, Swelling absent. 19:07 Reassessment: Patient appears in no apparent distress at this time. No changes from jd3 previously documented assessment. Patient and/or family updated on plan of care and expected duration. Pain level reassessed. Patient is alert, oriented x 3, equal unlabored respirations, skin warm/dry/pink. Vital Signs: 16:51 BP 131 / 72; Pulse 80; Resp 20; Temp 98.4; Pulse Ox 95% on R/A; Weight 117.93 kg (R); aj1 Height 5 ft. 9 in. (175.26 cm) (R); Pain 0/10; 18:40 BP 145 / 86; Pulse 78; Resp 16; Pulse Ox 98% on R/A; ss 19:06 BP 145 / 86; Pulse 72; Resp 17 S; Pulse Ox 96% on R/A; jd3 20:11 BP 144 / 82; Pulse 73; Resp 18 S; Pulse Ox 97% on R/A; jd3 16:51 Body Mass Index 38.39 (117.93 kg, 175.26 cm) aj1 ED Course: 16:25 Patient arrived in ED. sb2 16:26 Bud Sharif DO is Private Physician. sb2 16:50 Triage completed. aj1 16:51 Arm band placed on Patient placed in waiting room, Patient notified of wait time. aj1 18:04 Sam Chaudhary MD is Attending Physician. [facility] 18:23 X-ray completed. Portable x-ray completed in exam room. Patient tolerated procedure kp1 well. 18:25 XRAY Chest (1 view) In Process Unspecified. EDMS 18:43 Patient has correct armband on for positive identification. Placed in gown. Bed in low ss position. Call light in reach. Side rails up X 1. satellite project site monitor on. Pulse ox on. NIBP on. 18:43 Inserted saline lock: 20 gauge in right antecubital area, using aseptic technique. ss Blood collected. Patient maintains SpO2 saturation greater than 95% on room air. 19:05 Rudy Raman MD is Hospitalizing Provider. jm 19:06 Daniel Villanueva RN is Primary Nurse. jd3 19:07 EKG done, by ED staff, reviewed by Sam Chaudhary MD. jb1 20:13 No provider procedures requiring assistance completed. Patient admitted, IV remains in jd3 place. Administered Medications: 18:47 Drug: NS 0.9% 1000 ml Route: IV; Rate: 1 bolus; Site: right antecubital; ss 20:09 Follow up: Response: No adverse reaction; IV Status: Completed infusion; IV Intake: jd3 1000ml 19:23 Drug: Levemir 100 unit/mL 40 units Route: Sub-Q; Site: abdomen; jd3 20:28 Follow up: Response: No adverse reaction jd3 Point of Care Testing: Blood Glucose: 20:33 Blood Glucose: 247 mg/dL; jd3 Ranges: Intake: 20:09 IV: 1000ml; Total: 1000ml. jd3 Outcome: 19:06 Decision to Hospitalize by Provider. jm 20:32 Admitted to Med/surg accompanied by tech, via wheelchair, room 232, with chart, Report jd3 called to Cynthia PEDRAZA 20:32 Condition: stable 20:32 Instructed on the need for admit, Demonstrated understanding of instructions. 20:39 Patient left the ED. jd3 Signatures: Dispatcher [employer] EDRoberto Crews1 Teri Crain, RN RN aj1 Sam Chaudhary MD MD cha Smirch, Shelby, RN RN Alba Gil kp1 Daniel Villanueva RN RN Henrietta Piedra sb2
[2018-06-26] MEDS ORDERED: GLUCAGON 1 MG/VIAL IM PRN (19:10)
[2018-06-26] MEDS ORDERED: D50W 25 GM/50 ML SYRINGE IV PRN (19:10)
[2018-06-26 19:18] LABS: Albumin 3.1 g/dL (3.4-5.0); Bilirubin Direct 0.1 mg/dL (0-0.2); Bilirubin Total 0.4 mg/dL (0.2-1.0); CKMB Creatine Kinase MB 3.1 ng/mL (0.3-3.6); Magnesium 1.9 mg/dL (1.8-2.4); Potassium 4.4 mmol/L (3.5-5.1); Protein, Total 7.1 g/dL (6.4-8.2)
[2018-06-26] MEDS ORDERED: INSULIN DETEMIR 100 UNIT/1 ML INSULIN SQ ONE (19:25)
--- NOTE | 2018-06-26 20:05 | RAD REPORT ---
EXAM DESCRIPTION: Bill Single View06/26/2018 6:26 pm CLINICAL HISTORY: cough COMPARISON: May 2018 are FINDINGS: The lungs appear clear of acute infiltrate. The heart is moderately enlarged IMPRESSION: No acute abnormalities displayed
[2018-06-26 20:21] LABS: Urine Blood TRACE (NEG); Urine Glucose 2+ (NEG); Urine Protein 2+ (NEG); Urine Specific Gravity 1.025 (1.005-1.030)
[2018-06-26] MEDS ORDERED: ACETAMINOPHEN 500 MG TAB PO PRN (20:28)
[2018-06-26] MEDS ORDERED: ONDANSETRON 4 MG/2 ML VIAL IV PRN (20:28)
[2018-06-26] MEDS ORDERED: MORPHINE 2 MG/ML SYR IV PRN (20:28)
[2018-06-26] MEDS: INSULIN -REGULAR HUMAN 50 UNIT/0.5 ML ML SQ SCH (21:00)
[2018-06-26] MEDS: TAMSULOSIN 0.4 MG SR CAP PO SCH (21:41)
[2018-06-26] MEDS: LOSARTAN POTASSIUM 50 MG TABLET PO SCH (21:41)
[2018-06-26] MEDS: NA CHLORIDE 0.9% 1,000 ML IV SCH (21:41)
[2018-06-26 23:21] VITALS: BMI 40.6
[2018-06-27 00:31] VITALS: O2SAT 96
[2018-06-27 03:30] LABS: Absolute Lymphocytes (CBC) 2.4 K/uL (0.7-4.9); Absolute Monocytes 0.6 K/uL (0.1-1.3); Absolute Neutrophil 3.2 K/uL (1.8-8.0); Basophils % 0.7 % (0-1.3); Hematocrit 41.7 % (39.6-49.0); Lymphocytes % 36.3 % (15.3-44.8); MCH 32.3 pg (27.0-35.0); MCV 93.2 fL (80-100); MPV 8.1 fL (7.6-11.3); Monocytes % 9.5 % (3.3-12.3); RBC Red Blood Cell Count 4.47 M/uL (4.33-5.43)
[2018-06-27 04:03] LABS: Albumin 2.9 g/dL (3.4-5.0); Bilirubin Total 0.5 mg/dL (0.2-1.0); Magnesium 1.9 mg/dL (1.8-2.4); Phosphorus 2.4 mg/dL (2.5-4.9); Protein, Total 6.7 g/dL (6.4-8.2)
[2018-06-27 04:43] VITALS: BP 138/78; TEMP 97.7
[2018-06-27] MEDS: NA CHLORIDE 0.9% 1,000 ML IV SCH (05:25)
[2018-06-27] MEDS: INSULIN -REGULAR HUMAN 50 UNIT/0.5 ML ML SQ SCH ×2 (07:30→11:30)
[2018-06-27] MEDS: LOSARTAN POTASSIUM 50 MG TABLET PO SCH (08:54)
[2018-06-27] MEDS: TAMSULOSIN 0.4 MG SR CAP PO SCH (08:54)
[2018-06-27] MEDS ORDERED: ASPIRIN EC 325 MG TABLET PO SCH (09:00)
[2018-06-27] MEDS ORDERED: CLOPIDOGREL 75 MG TABLET PO SCH (09:00)
[2018-06-27] MEDS ORDERED: FINASTERIDE 5 MG TAB PO SCH (09:00)
--- NOTE | 2018-06-27 10:36 | P.HP ---
Certification for Inpatient Patient admitted to: Observation With expected LOS: <2 Midnights Patient will require the following post-hospital care: None Practitioner: I am a practitioner with admitting privileges, knowledge of patient current condition, hospital course, and medical plan of care. Services: Services provided to patient in accordance with Admission requirements found in Title 42 Section 412.3 of the Code of Federal Regulations Patient History Date of Service: 06/26/18 Reason for admission: Poorly-controlled blood sugar History of Present Illness: Patient is a 73-year-old who came into the hospital with elevated blood sugars. Patient was seen about a week ago for similar complaints. Patient has been altered and confused at home. He was forgetful. This is most likely related to the fact that his blood sugars have been poorly controlled. He has been feeling weak and lightheaded. He came into the hospital for further evaluation. Patient blood sugars were in the 400s. Patient been having polyuria and polydipsia. Patient has been lightheaded. Patient in the hospital for further evaluation. Allergies naproxen Allergy (Verified 06/26/18 20:58) Itching/Hives/Rash Home Medications: Aspirin 1 tab PO DAILY 06/26/18 Clopidogrel Bisulfate [Plavix] 75 mg PO DAILY 06/26/18 Finasteride [Proscar] 1 tab PO DAILY 06/26/18 Gabapentin [Neurontin] 300 mg PO DAILY 06/26/18 Insulin NPH Hum/Reg Insulin Hm [Humulin 70-30 Vial] 40 units SQ BID 06/26/18 Losartan Potassium 1 tab PO BID 06/26/18 Lubiprostone [Amitiza] 1 tab PO BID 06/26/18 Metformin HCl 1 tab PO BID 06/26/18 Omeprazole [Prilosec] 1 tab PO BID 06/26/18 Tamsulosin [Flomax*] 1 tab PO BID 06/26/18 - Past Medical/Surgical History Has patient received pneumonia vaccine in the past: Yes Diabetic: Yes -: HTN -: Diabetes mellitus type 2 -: Diabetic neuropathy -: History of CVA -: Coronary artery disease -: Chronic constipation -: Dementia -: BPH -: Chronic allergies -: Cataracts -: Peripheral vascular disease -: GERD -: Prostate/testicular surgery -: Appendectomy -: 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 He no longer works. - Family History Mother Medical History: Cancer Notes: Pancreatic [place] Father Medical History: Heart disease - Social History Smoking Status: Former smoker Alcohol use: No CD- Drugs: No Caffeine use: Yes Place of Residence: Home Review of Systems 10-point ROS is otherwise unremarkable Physical Examination - Vital Signs Temperature: 97.7 F Blood Pressure: 138/78 Pulse: 68 Respirations: 18 Pulse Ox (%): 95 - Physical Exam General: Alert, In no apparent distress, Oriented x3 HEENT: Atraumatic, PERRLA, Mucous membr. moist/pink, EOMI, Sclerae nonicteric Neck: Supple, 2+ carotid pulse no bruit, No LAD, Without JVD or thyroid abnormality Respiratory: Clear to auscultation bilaterally, Normal air movement Cardiovascular: Regular rate/rhythm, Normal S1 S2, No murmurs Gastrointestinal: Normal bowel sounds, No tenderness Musculoskeletal: No tenderness Integumentary: No rashes Neurological: Normal gait, Normal speech, Normal strength at 5/5 x4 extr, Normal tone, Sensation intact, Cranial nerves 3-12 intact, Normal affect Lymphatics: No axilla or inguinal lymphadenopathy - Studies Laboratory Data (last 24 hrs) 06/26/18 18:37: PT 11.5, INR 0.97, APTT 34.4 06/26/18 18:37: WBC 7.6, Hgb 14.7, Hct 43.6, Plt Count 233 06/26/18 18:37: Sodium 135 L, Potassium 4.4, BUN 23 H, Creatinine 1.20, Glucose 305 H, Magnesium 1.9, Total Bilirubin 0.4, AST 16, ALT 21, Alkaline Phosphatase 108, Lipase 116 Assessment & Plan - Problems (Diagnosis) (1) Uncontrolled diabetes mellitus Onset Date: 06/27/18 Current Visit: Yes Status: Acute (2) Chest pain Onset Date: 03/20/15 Current Visit: No Status: Acute (3) Coronary artery disease Onset Date: 12/28/16 Current Visit: No Status: Chronic Qualifiers: Coronary Disease-Associated Artery/Lesion type: unspecified vessel or lesion type [place] vs. transplanted heart: unspecified whether [place] or transplanted heart Associated angina: angina presence unspecified Qualified Code(s): I25.10 - Atherosclerotic heart disease of [place] coronary artery without angina pectoris (4) Dementia Onset Date: 12/28/16 Current Visit: No Status: Chronic Qualifiers: Dementia type: unspecified type Dementia behavioral disturbance: without behavioral disturbance Qualified Code(s): F03.90 - Unspecified dementia without behavioral disturbance (5) Diabetes mellitus Onset Date: 12/28/16 Current Visit: No Status: Chronic Qualifiers: Diabetes mellitus type: type 2 Diabetes mellitus [employer] insulin use: unspecified [facility] insulin use status Diabetes mellitus complication status : with neurologic complications Diabetes mellitus complication detail: with polyneuropathy Qualified Code(s): E11.42 - Type 2 diabetes mellitus with diabetic polyneuropathy (6) Hypertension Onset Date: 12/28/16 Current Visit: No Status: Chronic Qualifiers: Hypertension type: essential hypertension Qualified Code(s): I10 - Essential (primary) hypertension - Plan Plan: 1. Strict blood sugar control 2. IV hydration 3. Repeat chest x-ray if respiratory status worsen 4. Monitor electrolytes 5. A1c level 6. GI and DVT prophylaxis Discharge Plan: Home Plan to discharge in: 24 Hours - Advance Directives Does patient have a Living Will: No Does patient have a Durable POA for Healthcare: No - Code Status/Comfort Care Code Status Assessed: Yes Code Status: Full Code Critical Care: No Time Spent Managing PTS Care (In Minutes): 50
--- NOTE | 2018-06-27 10:46 | EKG ---
Test Date: 2018-06-26 Test Time: 19:01:58 Correctional Counselor: ELZA MEASUREMENT RESULTS: Intervals: Rate: 72 TN: 182 QRSD: 106 QT: 416 QTc: 455 [place]: P: 25 TN: 182 QRS: -30 T: -81 INTERPRETIVE STATEMENTS: Normal sinus rhythm Left axis deviation Inferior infarct, age undetermined Abnormal ECG Compared to ECG 06/13/2018 07:25:40 Left-axis deviation now present Ventricular premature complex(es) no longer present Myocardial infarct finding still present Electronically Signed On 06-27-18 10:44:52 CDT by Sharif Streeter
--- NOTE | 2018-06-27 14:32 | P.SSS ---
Patient History Date of Service: 06/27/18 Reason for admission: Poorly-controlled blood sugar History of Present Illness: Patient is a 73-year-old who came into the hospital with elevated blood sugars. Patient was seen about a week ago for similar complaints. Patient has been altered and confused at home. He was forgetful. This is most likely related to the fact that his blood sugars have been poorly controlled. He has been feeling weak and lightheaded. He came into the hospital for further evaluation. Patient blood sugars were in the 400s. Patient been having polyuria and polydipsia. Patient has been lightheaded. Patient in the hospital for further evaluation. Allergies naproxen Allergy (Verified 06/26/18 20:58) Itching/Hives/Rash Home Medications: Aspirin 1 tab PO DAILY 06/26/18 Clopidogrel Bisulfate [Plavix*] 75 mg PO DAILY 06/26/18 Finasteride [Proscar*] 1 tab PO DAILY 06/26/18 Gabapentin [Neurontin*] 300 mg PO DAILY 06/26/18 Insulin NPH Hum/Reg Insulin Hm [Humulin 70-30 Vial] 40 units SQ BID 06/26/18 Losartan Potassium 1 tab PO BID 06/26/18 Lubiprostone [Amitiza] 1 tab PO BID 06/26/18 Metformin HCl 1 tab PO BID 06/26/18 Omeprazole [Prilosec] 1 tab PO BID 06/26/18 Tamsulosin [Flomax*] 1 tab PO BID 06/26/18 - Past Medical/Surgical History Has patient received pneumonia vaccine in the past: Yes Diabetic: Yes -: HTN -: Diabetes mellitus type 2 -: Diabetic neuropathy -: History of CVA -: Coronary artery disease -: Chronic constipation -: Dementia -: BPH -: Chronic allergies -: Cataracts -: Peripheral vascular disease -: GERD -: Prostate/testicular surgery -: Appendectomy -: 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 He no longer works. - Family History Mother -: Cancer Notes: Pancreatic [place] Father -: Heart disease - Social History Smoking Status: Former smoker Alcohol use: No CD- Drugs: No Caffeine use: Yes Place of Residence: Home Review of Systems General: As per HPI Physical Examination - Vital Signs Temperature: 97.7 F Blood Pressure: 138/78 Pulse: 68 Respirations: 18 Pulse Ox (%): 95 - Physical Exam General: Alert, In no apparent distress HEENT: Atraumatic, PERRLA, Mucous membr. moist/pink, EOMI, Sclerae nonicteric Neck: Supple, 2+ carotid pulse no bruit, No LAD, Without JVD or thyroid abnormality Respiratory: Clear to auscultation bilaterally, Normal air movement Cardiovascular: Regular rate/rhythm, Normal S1 S2 Gastrointestinal: Normal bowel sounds, No tenderness Musculoskeletal: No tenderness Integumentary: No rashes Neurological: Normal gait, Normal speech, Normal strength at 5/5 x4 extr, Normal tone, Normal affect Lymphatics: No axilla or inguinal lymphadenopathy - Studies Laboratory Data (last 24 hrs) 06/26/18 18:37: PT 11.5, INR 0.97, APTT 34.4 06/26/18 18:37: WBC 7.6, Hgb 14.7, Hct 43.6, Plt Count 233 06/26/18 18:37: Sodium 135 L, Potassium 4.4, BUN 23 H, Creatinine 1.20, Glucose 305 H, Magnesium 1.9, Total Bilirubin 0.4, AST 16, ALT 21, Alkaline Phosphatase 108, Lipase 116 - Diagnosis (Problem(s)) (1) Shortness of breath Onset Date: 12/28/16 Status: Acute (2) Uncontrolled diabetes mellitus Onset Date: 06/27/18 Status: Chronic Qualifiers: Diabetes mellitus type: type 2 Glycemic state: with hyperglycemia Qualified Code(s): E11.65 - Type 2 diabetes mellitus with hyperglycemia (3) BPH (benign prostatic hyperplasia) Onset Date: 12/28/16 Status: Chronic Qualifiers: Lower urinary tract symptom presence: presence of symptoms unspecified Qualified Code(s): N40.0 - Benign prostatic hyperplasia without lower urinary tract symptoms (4) Coronary artery disease Onset Date: 12/28/16 Status: Chronic Qualifiers: Coronary Disease-Associated Artery/Lesion type: unspecified vessel or lesion type [place] vs. transplanted heart: unspecified whether [place] or transplanted heart Associated angina: angina presence unspecified Qualified Code(s): I25.10 - Atherosclerotic heart disease of [place] coronary artery without angina pectoris (5) Dementia Onset Date: 12/28/16 Status: Chronic Qualifiers: Dementia type: unspecified type Dementia behavioral disturbance: without behavioral disturbance Qualified Code(s): F03.90 - Unspecified dementia without behavioral disturbance (6) Diabetes mellitus Onset Date: 12/28/16 Status: Chronic Qualifiers: Diabetes mellitus type: type 2 Diabetes mellitus snf insulin use: unspecified snf insulin use status Diabetes mellitus complication status : with neurologic complications Diabetes mellitus complication detail: with polyneuropathy Qualified Code(s): E11.42 - Type 2 diabetes mellitus with diabetic polyneuropathy (7) GERD (gastroesophageal reflux disease) Onset Date: 12/28/16 Status: Chronic Qualifiers: Esophagitis presence: esophagitis presence not specified Qualified Code(s) : K21.9 - Gastro-esophageal reflux disease without esophagitis (8) Hypertension Onset Date: 12/28/16 Status: Chronic Qualifiers: Hypertension type: essential hypertension Qualified Code(s): I10 - Essential (primary) hypertension (9) Peripheral vascular disease Onset Date: 12/28/16 Status: Chronic Treatment Summary: Overall during the hospital stay patient remained stable Patient was initially admitted to the hospital for shortness of breath and uncontrolled diabetes. Patient was found to have hyperglycemia at that time. Patient was put on insulin sliding scale here in the hospital and home dose of insulin as well. Patient was found to have bronchitis causing his shortness of breath. He got neb treatment here in the hospital and felt much better. Patient had improvement in his status and thus was discharged home under stable condition. Patient had a dietary consult here along with diabetic education regarding diet and exercise. Patient was given list of medications to take along with dietary restrictions to control his diabetes. Family at bedside demonstrated understanding along with patient and thus he was discharged under stable condition. On the day of discharge blood sugar was less than 200. Patient agreeable with plan and okay with discharge. - Disposition Disposition: ROUTINE DISCHARGE Condition: GOOD Diet: Regular Activity: Ad cristopher
== END 2018-06-27 13:40 | disposition home or self-care (01) ==
LOC: ER 16:22 → ERHOLD 19:09 → 2ND 20:28
PROVIDERS: ADMIT Hospitalist; ATTEND Hospitalist
DX: E11.65 Type 2 diabetes mellitus with hyperglycemia (principal); J20.9 Acute bronchitis, unspecified; N40.0 Benign prostatic hyperplasia without lower urinary tract symptoms; I25.10 Atherosclerotic heart disease of native coronary artery without angina pectoris; F03.90 Unspecified dementia, unspecified severity, without behavioral disturbance, psychotic disturbance, mood disturbance, and anxiety; E11.42 Type 2 diabetes mellitus with diabetic polyneuropathy; K21.9 Gastro-esophageal reflux disease without esophagitis; I10 Essential (primary) hypertension; I73.9 Peripheral vascular disease, unspecified; Z86.73 Personal history of transient ischemic attack (TIA), and cerebral infarction without residual deficits
CPT/HCPCS: 36415; 71045; 80048; 80053; 80076; 81003; 82550; 82553; 82962 ×4; 83036; 83690; 83735 ×2; 83880; 84100; 84484 ×3; 85025 ×2; 85610; 85730; 87040 ×2; 87086; 87088; 93005; 96360; 96372; 99285; G0378 ×2; J7030 ×3

== ENCOUNTER 2018-07-15 11:20 | Emergency (ER) | payer OTHER ==
[2018-07-15 12:08] LABS: Urine Blood TRACE (NEG); Urine Glucose NEGATIVE (NEG); Urine Protein 1+ (NEG); Urine Specific Gravity 1.015 (1.005-1.030)
[2018-07-15 12:10] LABS: Urine Bacteria NONE SEEN /HPF (NONE SEEN); Urine RBC <5 /HPF (NONE SEEN)
[2018-07-15 12:11] LABS: Urine Culture Reflex Order NOT NEEDED
[2018-07-15 12:35] LABS: Absolute Monocytes 0.7 K/uL (0.1-1.3); Absolute Neutrophil 4.1 K/uL (1.8-8.0); Basophils % 0.4 % (0-1.3); Eosinophils % 3.1 % (0-4.4); Hematocrit 42.1 % (39.6-49.0); MCH 32.4 pg (27.0-35.0); MCV 93.8 fL (80-100); MPV 8.1 fL (7.6-11.3); Monocytes % 9.4 % (3.3-12.3); RBC Red Blood Cell Count 4.48 M/uL (4.33-5.43)
[2018-07-15 12:40] LABS: Albumin 3.1 g/dL (3.4-5.0); Bilirubin Direct 0.1 mg/dL (0-0.2); Bilirubin Total 0.5 mg/dL (0.2-1.0); Potassium 4.3 mmol/L (3.5-5.1)
--- NOTE | 2018-07-15 13:33 | RAD REPORT ---
EXAM DESCRIPTION: CT - Abdomen Pelvis W Contrast - 07/15/2018 1:03 pm CLINICAL HISTORY: Abd pain;Constipation COMPARISON: Abdomen Pelvis W Contrast dated 02/09/2017; Abdomen 2015 TECHNIQUE: Computed axial tomography of the abdomen pelvis was obtained. 100 cc Isovue-300 was admin istered intravenously. Oral contrast was not requested which limits evaluation of bowel. All CT scans are performed using dose optimization technique as appropriate and may include automated exposure control or mA/KV adjustment according to patient size. FINDINGS: 6 centimeter calcified hepatic mass is unchanged Spleen, pancreas, adrenal and kidneys appear unremarkable. There is no evidence of diverticulitis. Gallstones are present. The gallbladder wall is not thickened The prostate gland i markedly enlarged. Spondylosis involves the lumbar spine resulting in spinal stenosis A moderate amount of stool is present throughout the colon IMPRESSION: Cholelithiasis without evidence cholecystitis Moderate amount of stool throughout the colon
--- NOTE | 2018-07-15 13:53 | EDPHYS ---
Physician Documentation [facility] Name: Weston Garcia Age: 73 yrs Sex: Male : 1945 Arrival Date: 07/15/2018 Time: 11:24 Bed 16 Private MD: ED Physician Jg Roberts HPI: 07/15 14:32 This 73 yrs old Male presents to ER via Ambulatory with complaints of kdr Abdominal Pain, Back Pain, Constipation. 14:32 The patient presents with abdominal pain in the left lower quadrant. Onset: The kdr symptoms/episode began/occurred 3 day(s) ago. The symptoms do not radiate. Associated signs and symptoms: Pertinent positives:. The symptoms are described as achy, constant, crampy, vague. Severity of pain: At its worst the pain was mild moderate just prior to arrival, in the emergency department the pain is unchanged. The patient has experienced similar episodes in the past, a few times. The patient has not recently seen a physician. Historical: - Allergies: 11: Naproxen; aa5 - Home Meds: : Amitiza 8 mcg Oral cap 1 cap 2 times per day [Active]; aspirin 325 mg Oral tab 1 tab hj once daily [Active]; finasteride 5 mg Oral tab 1 tab once daily [Active]; gabapentin 300 mg Oral cap daily [Active]; Humulin 70/30 100 unit/mL (70-30) Sub-Q susp 40 unit twice a day [Active]; losartan 50 mg Oral tab 1 tab 2 times per day [Active]; metformin 1,000 mg Oral tab 1 tab 2 times per day [Active]; omeprazole 40 mg Oral cpDR 1 cap 2 times per day [Active]; pentoxifylline 400 mg Oral TbER daily [Active]; Plavix 75 mg Oral tab 1 tab once daily [Active]; tamsulosin 0.4 mg Oral cp24 1 cap once daily [Active]; - PMHx: 11: CVA; Diabetes - NIDDM; Hypertension; aa5 - PSHx: 11: cardiac stent; aa5 - Immunization history:: Adult Immunizations unknown. - Social history:: Smoking status: Patient/guardian denies using tobacco. - Ebola Screening: : No symptoms or risks identified at this time. ROS: 14:32 Constitutional: Negative for fever, chills, and weight loss, Eyes: Negative for injury, kdr pain, redness, and discharge, Neck: Negative for injury, pain, and swelling, Cardiovascular: Negative for chest pain, palpitations, and edema, Respiratory: Negative for shortness of breath, cough, wheezing, and pleuritic chest pain, Back: Negative for injury and pain, : Negative for injury, bleeding, discharge, and swelling, MS/Extremity: Negative for injury and deformity, Skin: Negative for injury, rash, and discoloration, Neuro: Negative for headache, weakness, numbness, tingling, and seizure activity. Psych: Negative for depression, anxiety, suicide ideation, homicidal ideation, and hallucinations, Allergy/Immunology: Negative for hives, rash, and allergies, Endocrine: Negative for neck swelling, polydipsia, polyuria, polyphagia, and marked weight changes, Hematologic/Lymphatic: Negative for swollen nodes, abnormal bleeding, and unusual bruising. 14:32 Abdomen/GI: Positive for abdominal pain, constipation, abdominal cramps, Negative for nausea, vomiting, black/tarry stool, rectal pain, rectal bleeding. Exam: 14:32 Constitutional: This is a well developed, well nourished patient who is awake, alert, kdr and in no acute distress. Head/Face: Normocephalic, atraumatic. Eyes: Pupils equal round and reactive to light, extra-ocular motions intact. Lids and lashes normal. Conjunctiva and sclera are non-icteric and not injected. Cornea within normal limits. Periorbital areas with no swelling, redness, or edema. Neck: Trachea midline, no thyromegaly or masses palpated, and no cervical lymphadenopathy. Supple, full range of motion without nuchal rigidity, or vertebral point tenderness. No Meningismus. Chest/axilla: Normal chest wall appearance and motion. Nontender with no deformity. No lesions are appreciated. Cardiovascular: Regular rate and rhythm with a normal S1 and S2. No gallops, murmurs, or rubs. Normal PMI, no JVD. No pulse deficits. Respiratory: Lungs have equal breath sounds bilaterally, clear to auscultation and percussion. No rales, rhonchi or wheezes noted. No increased work of breathing, no retractions or nasal flaring. Back: No spinal tenderness. No costovertebral tenderness. Full range of motion. Skin: Warm, dry with normal turgor. Normal color with no rashes, no lesions, and no evidence of cellulitis. MS/ Extremity: Pulses equal, no cyanosis. Neurovascular intact. Full, normal range of motion. Neuro: Awake and alert, GCS 15, oriented to person, place, time, and situation. Cranial nerves II-XII grossly intact. Motor strength 5/5 in all extremities. Sensory grossly intact. Cerebellar exam normal. Normal gait. Psych: Awake, alert, with orientation to person, place and time. Behavior, mood, and affect are within normal limits. 14:32 Abdomen/GI: Inspection: distension, obese Bowel sounds: active, Palpation: soft, mild abdominal tenderness, in the left lower quadrant, mass, is not appreciated, rebound tenderness, is not appreciated, voluntary guarding, is not appreciated. Vital Signs: 11:29 BP 122 / 67; Pulse 73; Resp 18 S; Temp 97.3(TE); Pulse Ox 95% on R/A; Weight 127.01 kg aa5 (R); Height 5 ft. 9 in. (175.26 cm) (R); Pain 7/10; 12:16 BP 113 / 79; Pulse 70; Resp 18; Pulse Ox 96% on R/A; hj 11:29 Body Mass Index 41.35 (127.01 kg, 175.26 cm) aa5 MDM: 13:52 Patient medically screened. [facility] 14:32 Data reviewed: vital signs, nurses notes, lab test result(s), radiologic studies. kdr Counseling: I had a detailed discussion with the patient and/or guardian regarding: the historical points, exam findings, and any diagnostic results supporting the discharge/admit diagnosis, lab results, radiology results. 14:32 ED course: The patient was stable in the ED and felt better at time of discharge. kdr 07/15 11:34 Order name: Amylase, Serum; Complete Time: 13:47 kdr 07/15 11:34 Order name: Basic Metabolic Panel; Complete Time: 13:47 kdr 07/15 11:34 Order name: CBC with Diff; Complete Time: 13:47 kdr 07/15 11:34 Order name: Creatinine for Radiology; Complete Time: 12:38 kdr 07/15 11:34 Order name: Hepatic Function; Complete Time: 13:47 kdr 07/15 11:34 Order name: Lipase; Complete Time: 13:47 [facility] 07/15 11:34 Order name: Urine Microscopic Only; Complete Time: 12:38 [facility] 07/15 11:34 Order name: IV Saline Lock; Complete Time: 12:12 [facility] 07/15 11:34 Order name: Labs collected and sent; Complete Time: 12:12 [facility] 07/15 11:34 Order name: Urine Dipstick-Ancillary (obtain specimen); Complete Time: 11:38 [facility] 07/15 11:59 Order name: Urine Dipstick--Ancillary (enter results); Complete Time: 12:38 07/15 12:06 Order name: CT Abd/Pelvis - W/Contrast; Complete Time: 13:47 [facility] Administered Medications: No medications were administered Disposition: 07/15/18 13:52 Discharged to Home. Impression: Abdominal and pelvic pain, Constipation, unspecified. - Condition is Stable. - Discharge Instructions: Constipation, Adult, [id number], Abdominal Pain, Adult, [id number]. - Prescriptions for Tramadol 50 mg Oral Tablet - take 1 tablet by ORAL route every 8 hours as needed; 12 tablet. Miralax 17 gram/dose Oral - take 1 packet by ORAL route once daily dilute powder in 8 ounces of water or juice; 30 packet. - Medication Reconciliation Form, Thank You Letter, Antibiotic Education, Prescription Opioid Use form. - Follow up: Private Physician; When: 2 - 3 days; Reason: If symptoms return, Further diagnostic work-up, Recheck today's complaints, Continuance of care, Re-evaluation by your physician. - Problem is new. - Symptoms are unchanged. Signatures: Dispatcher [employer] EDCT Jg Roberts MD MD [facility] Leena Muñoz, RN RN aa5 Remington Briceno RN RN hj Corrections: (The following items were deleted from the chart) 14:20 13:52 07/15/2018 13:52 Discharged to Home. Impression: Abdominal and pelvic pain; hj Constipation, unspecified. Condition is Stable. Forms are Medication Reconciliation Form, Thank You Letter, Antibiotic Education, Prescription Opioid Use. Follow up: Private Physician; When: 2 - 3 days; Reason: If symptoms return, Further diagnostic work-up, Recheck today's complaints, Continuance of care, Re-evaluation by your physician. Problem is new. Symptoms are unchanged. kdr
--- NOTE | 2018-07-15 13:53 | ER ---
Nurse's Notes [facility] Name: Weston Garcia Age: 73 yrs Sex: Male : 1945 Arrival Date: 07/15/2018 Time: 11:24 Bed 16 Private MD: Diagnosis: Abdominal and pelvic pain;Constipation, unspecified Presentation: 07/15 11:27 Presenting complaint: Patient states: LLQ pain radiating to left low back. Pt reports aa5 last BM was 3-4 days ago. Denies nausea, denies vomiting. Pt reports recently diagnosed with UTI and has been taking Bactrim DS for 2 days. Transition of care: patient was not received from another setting of care. Onset of symptoms was July 2018. Risk Assessment: Do you want to hurt yourself or someone else? Patient reports no desire to harm self or others. Initial Sepsis Screen: Does the patient meet any 2 criteria? No. Patient's initial sepsis screen is negative. Does the patient have a suspected source of infection? No. Patient's initial sepsis screen is negative. Care prior to arrival: None. 11:27 Method Of Arrival: Ambulatory aa5 11:27 Acuity: GIRISH 3 aa5 Triage Assessment: 11:31 General: Appears in no apparent distress. uncomfortable, Behavior is calm, cooperative, hj appropriate for age. Pain: Complains of pain in abdomen Pain radiates to back. GI: Reports lower abdominal pain, constipation. Historical: - Allergies: 11:29 Naproxen; aa5 - Home Meds: 11:29 Amitiza 8 mcg Oral cap 1 cap 2 times per day [Active]; aspirin 325 mg Oral tab 1 tab hj once daily [Active]; finasteride 5 mg Oral tab 1 tab once daily [Active]; gabapentin 300 mg Oral cap daily [Active]; Humulin 70/30 100 unit/mL (70-30) Sub-Q susp 40 unit twice a day [Active]; losartan 50 mg Oral tab 1 tab 2 times per day [Active]; metformin 1,000 mg Oral tab 1 tab 2 times per day [Active]; omeprazole 40 mg Oral cpDR 1 cap 2 times per day [Active]; pentoxifylline 400 mg Oral TbER daily [Active]; Plavix 75 mg Oral tab 1 tab once daily [Active]; tamsulosin 0.4 mg Oral cp24 1 cap once daily [Active]; - PMHx: 11:29 CVA; Diabetes - NIDDM; Hypertension; aa5 - PSHx: 11:29 cardiac stent; aa5 - Immunization history:: Adult Immunizations unknown. - Social history:: Smoking status: Patient/guardian denies using tobacco. - Ebola Screening: : No symptoms or risks identified at this time. Screenin:31 Abuse screen: Denies threats or abuse. Denies injuries from another. Nutritional hj screening: No deficits noted. Tuberculosis screening: No symptoms or risk factors identified. Fall Risk None identified. Assessment: 11:32 GI: Bowel sounds present X 4 quads. Abd is soft Abdomen is tender to palpation. hj 11:32 General: Appears in no apparent distress. uncomfortable, Behavior is calm, cooperative, hj appropriate for age. Pain: Complains of pain in abdomen. Neuro: Level of Consciousness is awake, alert, obeys commands, Oriented to person, place, time, situation, Appropriate for age. Cardiovascular: Capillary refill < 3 seconds Patient's skin is warm and dry. Respiratory: Airway is patent Respiratory effort is even, unlabored, Respiratory pattern is regular, symmetrical. : No signs and/or symptoms were reported regarding the genitourinary system. EENT: No signs and/or symptoms were reported regarding the EENT system. Derm: No signs and/or symptoms reported regarding the dermatologic system. Musculoskeletal: No signs and/or symptoms reported regarding the musculoskeletal system. 12:18 Reassessment: Patient and/or family updated on plan of care and expected duration. Pain hj level reassessed. Patient is alert, oriented x 3, equal unlabored respirations, skin warm/dry/pink. awaiting for results and CT;. Vital Signs: 11:29 BP 122 / 67; Pulse 73; Resp 18 S; Temp 97.3(TE); Pulse Ox 95% on R/A; Weight 127.01 kg aa5 (R); Height 5 ft. 9 in. (175.26 cm) (R); Pain 7/10; 12:16 BP 113 / 79; Pulse 70; Resp 18; Pulse Ox 96% on R/A; hj 11:29 Body Mass Index 41.35 (127.01 kg, 175.26 cm) aa5 ED Course: 11:24 Patient arrived in ED. mr 11:28 Triage completed. aa5 11:29 Arm band placed on. aa5 11:30 Remington Briceno, RN is Primary Nurse. hj 11:32 Patient has correct armband on for positive identification. Placed in gown. Bed in low hj position. Call light in reach. Side rails up X 1. Adult w/ patient. 11:34 Jg Roberts MD is Attending Physician. kdr 12:05 Initial lab(s) drawn, by me, sent to lab. Urine collected:. Inserted saline lock: 22 hj gauge in left antecubital area, using aseptic technique. Blood collected. 12:19 Radiology exam delayed due to lab results not completed at this time. (BUN/Creatinine). bq 13:02 CT completed. Patient tolerated procedure well. Patient moved back from CT. bq 13:04 CT Abd/Pelvis - W/Contrast In Process Unspecified. EDMS 14:19 No provider procedures requiring assistance completed. IV discontinued, intact, hj bleeding controlled, No redness/swelling at site. Pressure dressing applied. Administered Medications: No medications were administered Outcome: 13:52 Discharge ordered by . kdr 14:20 Discharged to home via wheelchair, with family. hj 14:20 Condition: stable 14:20 Discharge instructions given to patient, family, Instructed on discharge instructions, follow up and referral plans. medication usage, Demonstrated understanding of instructions, follow-up care, medications, Prescriptions given X 2. 14:20 Patient left the ED. hj Signatures: Dispatcher [employer] EDMS Jg Roberts MD MD [facility] Miranda Philippe Brianna Augustin Leena Muñoz RN RN aa Remington Briceno, KEILA RN hj
[2018-07-15 14:41] VITALS: TEMP 97.3
[2018-07-15 14:43] VITALS: BP 113/79; O2SAT 96
== END 2018-07-15 14:20 | disposition home or self-care (01) ==
LOC: ER 11:20
DX: K59.00 Constipation, unspecified (principal); I10 Essential (primary) hypertension; E11.9 Type 2 diabetes mellitus without complications; Z79.4 Long term (current) use of insulin; Z95.818 Presence of other cardiac implants and grafts; Z79.82 Long term (current) use of aspirin; Z79.01 Long term (current) use of anticoagulants; Z88.6 Allergy status to analgesic agent
CPT/HCPCS: 36415; 74177; 80048; 80076; 82150; 83690; 85025; 99284; Q9967; 81003; 81015

== ENCOUNTER 2018-09-19 10:15 | Emergency (ER) | payer OTHER ==
[2018-09-19 11:35] LABS: Absolute Lymphocytes (CBC) 1.6 K/uL (0.7-4.9); Absolute Monocytes 0.6 K/uL (0.1-1.3); Absolute Neutrophil 5.2 K/uL (1.8-8.0); Basophils % 0.4 % (0-1.3); Eosinophils % 1.8 % (0-4.4); Hematocrit 47.9 % (39.6-49.0); Lymphocytes % 20.7 % (15.3-44.8); MCV 94.4 fL (80-100); MPV 8.3 fL (7.6-11.3); Monocytes % 8.1 % (3.3-12.3); RBC Red Blood Cell Count 5.08 M/uL (4.33-5.43)
--- NOTE | 2018-09-19 11:57 | RAD REPORT ---
EXAM DESCRIPTION: CT - Stone Protocol - 09/19/2018 11:40 am CLINICAL HISTORY: Abdominal pain and back pain, back pain radiating to the groin, recent treatment f or UTI COMPARISON: CT July 2018, January 2017 CT imaging TECHNIQUE: Axial 5 mm thick images were obtained without oral or IV contrast. The [id number] span s the entirety of the system including uppermost abdomen and lung bases. All CT scans are performed using dose optimization technique as appropriate and may include automated exposure control or mA/KV adjustment according to patient size. FINDINGS: No hydronephrosis is present and no obstructing ureteral calculi. No suspicious renal mass es. Isodense masses and pyelonephritis are not excluded on a stone protocol CT scan. No urinary bladd er suspicious finding. Prostate gland is enlarged projecting into the bladder base. No gross change t o the prostate since prior imaging. No new liver lesions seen. A 6 centimeter calcified mass posterosuperior right lobe has not changed f 2016 spleen and pancreas show no suspicious findings multiple gallstones are present in a normal- sized gallbladder. No wall thickening. No biliary tree dilatation. No significant adrenal finding. No suspicious bowel findings. No appendicitis findings. No active GI process seen. Sigmoid colon is q uite tortuous and redundant. No abdominal wall hernia. There is atrophy of the inferior right-side rectus abdominis musculature. N o free air, free fluid or inflammatory stranding. No mass or bulky lymphadenopathy. Prominent bony degenerative changes are present. No acute bone findings seen. Numerous bulla and bleb formation in each lower lung field. This is similar to prior imaging. Pericar dial effusion is present not substantially different from prior imaging. IMPRESSION: No hydronephrosis, obstructing calculus or acute finding. Isodense masses and pyelonephritis are not excluded on stone protocol technique. No acute GI process seen. Multi stone cholelithiasis. No acute gallbladder or biliary tree finding.
[2018-09-19 12:16] LABS: Potassium 4.5 mmol/L (3.5-5.1)
--- NOTE | 2018-09-19 13:09 | ER ---
Nurse's Notes [facility] Name: Weston Garcia Age: 73 yrs Sex: Male : 1945 Arrival Date: 09/19/2018 Time: 10:20 Bed 24 Private MD: Bud Sharif H Diagnosis: Low back pain Presentation: 09/19 10:41 Presenting complaint: Child states: "He has been having a lot of pain in his lower aj1 back" Denies dysuria, reports that he is currently taking medication for a UTI. Reports suprapubic pain that radiated to his back for the past month. Patient states that he is also having pain in his legs, he got an injection by Dr. Dunbar in his knees 6 months ago, and that helped at that time. Transition of care: patient was not received from another setting of care. Onset of symptoms was August 2018. Risk Assessment: Do you want to hurt yourself or someone else? Patient reports no desire to harm self or others. Initial Sepsis Screen: Does the patient meet any 2 criteria? No. Patient's initial sepsis screen is negative. Does the patient have a suspected source of infection? No. Patient's initial sepsis screen is negative. Care prior to arrival: None. 10:41 Method Of Arrival: Wheelchair aj1 10:41 Acuity: GIRISH 4 aj1 Triage Assessment: 10:46 General: Appears in no apparent distress. comfortable, Behavior is calm, cooperative. aj1 Pain: Complains of pain in back, suprapubic area, right leg and left leg. Pain: Pain currently is 8 out of 10 on a pain scale. Neuro: Level of Consciousness is awake, alert, obeys commands. Cardiovascular: Patient's skin is warm and dry. Respiratory: Airway is patent Respiratory effort is even, unlabored, Respiratory pattern is regular, symmetrical. Historical: - Allergies: 10:46 Naproxen; aj1 - Home Meds: 10:46 Amitiza 8 mcg Oral cap 1 cap 2 times per day [Active]; aspirin 325 mg Oral tab 1 tab aj1 once daily [Active]; finasteride 5 mg Oral tab 1 tab once daily [Active]; gabapentin 300 mg Oral cap daily [Active]; Humulin 70/30 100 unit/mL (70-30) Sub-Q susp 40 unit twice a day [Active]; losartan 50 mg Oral tab 1 tab 2 times per day [Active]; metformin 1,000 mg Oral tab 1 tab 2 times per day [Active]; omeprazole 40 mg Oral cpDR 1 cap 2 times per day [Active]; pentoxifylline 400 mg Oral TbER daily [Active]; Plavix 75 mg Oral tab 1 tab once daily [Active]; tamsulosin 0.4 mg Oral cp24 1 cap once daily [Active]; Bactrim DS Oral [Active]; - PMHx: 10:46 CVA; Diabetes - NIDDM; Hypertension; aj1 - Immunization history:: Flu vaccine is not up to date. - Social history:: Smoking status: Patient/guardian denies using tobacco. - Ebola Screening: : Patient denies travel to an Ebola-affected area in the 21 days before illness onset. - Family history:: not pertinent. - Hospitalizations: : No recent hospitalization is reported. Screenin:09 Abuse screen: Denies threats or abuse. Nutritional screening: No deficits noted. tw2 Tuberculosis screening: No symptoms or risk factors identified. Fall Risk None identified. Assessment: 11:00 General: Appears in no apparent distress. Behavior is calm, cooperative, appropriate tw2 for age. Pain: Complains of pain in back and suprapubic area. Neuro: Level of Consciousness is awake, alert, obeys commands, Oriented to person, place, time, situation. Cardiovascular: Denies chest pain, shortness of breath, Heart tones S1 S2 Patient's skin is warm and dry. Respiratory: Airway is patent Respiratory effort is even, unlabored, labored, Respiratory pattern is regular, symmetrical, Breath sounds are clear bilaterally. GI: Abdomen is round non-distended, obese, Bowel sounds present X 4 quads. Abd is soft X 4 quads. : Reports recent UTI. EENT: No signs and/or symptoms were reported regarding the EENT system. Derm: No signs and/or symptoms reported regarding the dermatologic system. Musculoskeletal: Range of motion: intact in all extremities. 11:47 Reassessment: Patient appears in no apparent distress at this time. No changes from tw2 previously documented assessment. Patient and/or family updated on plan of care and expected duration. Pain level reassessed. Patient is alert, oriented x 3, equal unlabored respirations, skin warm/dry/pink. 12:50 Reassessment: Patient appears in no apparent distress at this time. No changes from tw2 previously documented assessment. Patient and/or family updated on plan of care and expected duration. Pain level reassessed. Patient is alert, oriented x 3, equal unlabored respirations, skin warm/dry/pink. 13:14 Reassessment: Patient appears in no apparent distress at this time. No changes from tw2 previously documented assessment. Patient and/or family updated on plan of care and expected duration. Pain level reassessed. Patient is alert, oriented x 3, equal unlabored respirations, skin warm/dry/pink. Vital Signs: 10:46 BP 108 / 63; Pulse 59; Resp 20; Temp 97.0; Pulse Ox 95% on R/A; Weight 124.74 kg (R); aj1 Height 5 ft. 9 in. (175.26 cm); Pain 8/10; 11:47 BP 131 / 78; Pulse 69; Resp 17; Pulse Ox 97% on R/A; tw2 12:51 BP 129 / 73; Pulse 70; Resp 17; Pulse Ox 100% on R/A; tw2 13:14 BP 124 / 82; Pulse 67; Resp 17; Pulse Ox 98% on R/A; tw2 10:46 Body Mass Index 40.61 (124.74 kg, 175.26 cm) aj1 ED Course: 10:20 Patient arrived in ED. sb2 10:20 Bud Sharif DO is Private Physician. sb2 10:45 Triage completed. aj1 10:46 Arm band placed on Patient placed in waiting room, Patient notified of wait time. aj1 11:02 Myke Gee MD is Attending Physician. rn 11:09 Bette Vides, KEILA is Primary Nurse. tw2 11:09 Bed in low position. Call light in reach. Adult w/ patient. Pulse ox on. NIBP on. tw2 11:20 Initial lab(s) drawn, by me, sent to lab. Inserted saline lock: 20 gauge in right jp3 antecubital area, using aseptic technique. Blood collected. 11:27 CBC with Diff Sent. jp3 11:27 Basic Metabolic Panel Sent. jp3 11:39 CT Stone Protocol In Process Unspecified. EDMS 11:57 Basic Metabolic Panel Sent. jp3 11:58 Lab(s) recollected, by me, sent to lab. jp3 13:08 Bud Sharif DO is Referral Physician. rn 13:26 No provider procedures requiring assistance completed. IV discontinued, intact, tw2 bleeding controlled, No redness/swelling at site. Pressure dressing applied. Administered Medications: No medications were administered Outcome: 13:09 Discharge ordered by MD. rn 13:26 Discharged to home via wheelchair, with family. tw2 13:26 Condition: stable 13:26 Discharge instructions given to patient, family, Instructed on discharge instructions, follow up and referral plans. no drinking with medication, no driving heavy equipment, medication usage, Demonstrated understanding of instructions, follow-up care, medications, Prescriptions given X 2. 13:27 Patient left the ED. tw2 Signatures: Dispatcher [employer] EDMS Teri Crain, RN RN aj1 Myke Gee MD MD rn Wise, Tara, RN RN tw2 Henrietta Frazier2 Melvin Brennan jp3
--- NOTE | 2018-09-19 13:09 | EDPHYS ---
Physician Documentation [facility] Name: Weston Garcia Age: 73 yrs Sex: Male : 1945 Arrival Date: 09/19/2018 Time: 10:20 Bed 24 Private MD: Bud Sharif H ED Physician Myke Gee HPI: 09/19 11:19 This 73 yrs old Male presents to ER via Wheelchair with complaints of Back rn Pain. 11:19 The patient presents with pain that is chronic. rn 11:19 The symptoms are located in the low back. Onset: The symptoms/episode began/occurred 1 rn month(s) ago. The pain radiates to the pelvis. Associated signs and symptoms: Pertinent positives: none Pertinent negatives: abdominal pain, dysuria, fever, hematuria, incontinence, nausea, numbness, tingling, urinary retention, vomiting, weakness. Modifying factors: The patient symptoms are alleviated by nothing, the patient symptoms are aggravated by any movement. Severity of symptoms: At their worst the symptoms were mild, in the emergency department the symptoms have improved. The patient has experienced similar episodes in the past. Reports low back pain, radiates to groin, for 1 month, got worse recently after fall, states chair broke, landed on his seat, doesn't feel like broke anything, is ambulatory, being treated for UTI, on abx. . Historical: - Allergies: 10:46 Naproxen; aj1 - Home Meds: 10:46 Amitiza 8 mcg Oral cap 1 cap 2 times per day [Active]; aspirin 325 mg Oral tab 1 tab aj1 once daily [Active]; finasteride 5 mg Oral tab 1 tab once daily [Active]; gabapentin 300 mg Oral cap daily [Active]; Humulin 70/30 100 unit/mL (70-30) Sub-Q susp 40 unit twice a day [Active]; losartan 50 mg Oral tab 1 tab 2 times per day [Active]; metformin 1,000 mg Oral tab 1 tab 2 times per day [Active]; omeprazole 40 mg Oral cpDR 1 cap 2 times per day [Active]; pentoxifylline 400 mg Oral TbER daily [Active]; Plavix 75 mg Oral tab 1 tab once daily [Active]; tamsulosin 0.4 mg Oral cp24 1 cap once daily [Active]; Bactrim DS Oral [Active]; - PMHx: 10:46 CVA; Diabetes - NIDDM; Hypertension; aj1 - Immunization history:: Flu vaccine is not up to date. - Social history:: Smoking status: Patient/guardian denies using tobacco. - Ebola Screening: : Patient denies travel to an Ebola-affected area in the 21 days before illness onset. - Family history:: not pertinent. - Hospitalizations: : No recent hospitalization is reported. ROS: 11:19 Constitutional: Negative for fever, chills, and weight loss, Eyes: Negative for injury, rn pain, redness, and discharge, Neck: Negative for injury, pain, and swelling, Cardiovascular: Negative for chest pain, palpitations, and edema, Respiratory: Negative for shortness of breath, cough, wheezing, and pleuritic chest pain, Abdomen/GI: Negative for abdominal pain, nausea, vomiting, diarrhea, and constipation, Back: + low back pain : Negative for injury, bleeding, discharge, and swelling, MS/Extremity: Negative for injury and deformity, Skin: Negative for injury, rash, and discoloration, Neuro: Negative for headache, weakness, numbness, tingling, and seizure. Exam: 11:19 Constitutional: This is a well developed, well nourished patient who is awake, alert, rn and in no acute distress. Head/Face: Normocephalic, atraumatic. Cardiovascular: Regular rate and rhythm with a normal S1 and S2. No pulse deficits. Respiratory: Lungs have equal breath sounds bilaterally, clear to auscultation and percussion. No increased work of breathing, no retractions or nasal flaring. Abdomen/GI: soft, non-tender, no masses Back: No spinal tenderness. + mild right and left perilumbar tenderness, no skin changes, no CVAT Skin: Warm, dry with normal turgor. Normal color with no rashes, no lesions, and no evidence of cellulitis. MS/ Extremity: Pulses equal, no cyanosis. Neurovascular intact. Full, normal range of motion. Equal circumference. Neuro: Awake and alert, GCS 15, oriented to person, place, time, and situation. Cranial nerves II-XII grossly intact. Motor strength 5/5 in all extremities. Sensory grossly intact. Cerebellar exam normal. Normal gait. Vital Signs: 10:46 BP 108 / 63; Pulse 59; Resp 20; Temp 97.0; Pulse Ox 95% on R/A; Weight 124.74 kg (R); aj1 Height 5 ft. 9 in. (175.26 cm); Pain 8/10; 11:47 BP 131 / 78; Pulse 69; Resp 17; Pulse Ox 97% on R/A; tw2 12:51 BP 129 / 73; Pulse 70; Resp 17; Pulse Ox 100% on R/A; tw2 13:14 BP 124 / 82; Pulse 67; Resp 17; Pulse Ox 98% on R/A; tw2 10:46 Body Mass Index 40.61 (124.74 kg, 175.26 cm) aj1 MDM: 11:02 Patient medically screened. rn 13:08 Differential diagnosis: arthritis, chronic back pain, Fatigue ruptured disc, rn Ureterolithiasis radiculopathy. Data reviewed: vital signs, nurses notes, lab test result(s), radiologic studies, CT scan, and as a result, I will discharge patient. Counseling: I had a detailed discussion with the patient and/or guardian regarding: the historical points, exam findings, and any diagnostic results supporting the discharge/admit diagnosis, lab results, radiology results, the need for outpatient follow up, to return to the emergency department if symptoms worsen or persist or if there are any questions or concerns that arise at home. Special discussion: I discussed with the patient/guardian in detail that at this point there is no indication for admission to the hospital. It is understood, however, that if the symptoms persist or worsen the patient needs to return immediately for re-evaluation. 09/19 11:09 Order name: CBC with Diff; Complete Time: 12:02 rn 09/19 11:09 Order name: Basic Metabolic Panel; Complete Time: 13:07 rn 09/19 11:09 Order name: IV Start; Complete Time: 11:27 rn 09/19 11:09 Order name: CT Stone Protocol; Complete Time: 12:02 rn 09/19 11:43 Order name: Labs - recollect needed; Complete Time: 11:57 bd Administered Medications: No medications were administered Disposition: 09/19/18 13:09 Discharged to Home. Impression: Low back pain. - Condition is Stable. - Discharge Instructions: Back Pain, Adult, Musculoskeletal Pain. - Prescriptions for Cyclobenzaprine 10 mg Oral Tablet - take 1 tablet by ORAL route every 8 hours As needed; 30 tablet. Medrol (Fausto) 4 mg Oral Tablets, Dose Pack - take 1 tablet by ORAL route as directed - follow package instructions; 1 packet. - Medication Reconciliation Form, Thank You Letter, Antibiotic Education, Prescription Opioid Use form. - Follow up: Bud Sharif DO; When: As needed; Reason: Recheck today's complaints, Re-evaluation by your physician. - Problem is an ongoing problem. - Symptoms have improved. Signatures: Dispatcher [employer] EDMS Ronna Jimenez Angela RN RN aj1 Myke Gee MD MD rn Wise, Tara, RN RN tw2 Corrections: (The following items were deleted from the chart) 13:15 11:09 Urine Dipstick-Ancillary ordered. rn tw2 13:27 13:09 09/19/2018 13:09 Discharged to Home. Impression: Low back pain. Condition is tw2 Stable. Forms are Medication Reconciliation Form, Thank You Letter, Antibiotic Education, Prescription Opioid Use. Follow up: Bud Sharif; When: As needed; Reason: Recheck today's complaints, Re-evaluation by your physician. Problem is an ongoing problem. Symptoms have improved. rn
== END 2018-09-19 13:27 | disposition home or self-care (01) ==
LOC: ER 10:15
DX: M54.5 Low back pain (principal); I10 Essential (primary) hypertension; E11.9 Type 2 diabetes mellitus without complications; Z79.4 Long term (current) use of insulin; Z79.01 Long term (current) use of anticoagulants; Z79.82 Long term (current) use of aspirin; Z88.6 Allergy status to analgesic agent; Z86.73 Personal history of transient ischemic attack (TIA), and cerebral infarction without residual deficits
CPT/HCPCS: 36415; 74176; 76377; 80048; 85025; 99284

== ENCOUNTER 2019-01-20 19:49 | Emergency (ER) | payer OTHER ==
--- OUTSIDE RECORDS SUMMARY | 2019-01-20 20:02 | XMS REPORT | Clinical Summary ---
:1945 Author Organization [facility] Address [address] [place] [address] Care Team Providers Name Role Phone Bud Sharif Primary Care Provider Allergies Active Allergy Reactions Severity Noted Date Comments Naproxen Other (See Comments) 12/21/2018 Itching and swelling and anxious Medications Medication Sig Dispensed Refills Start Date End Date Status metFORMIN Take 1,000 mg by 0 Active (GLUCOPHAGE) 1000 mouth 2 (two) times MG tablet daily with breakfast and dinner. losartan (COZAAR) Take 50 mg by mouth 2 0 Active 50 MG tablet (two) times daily. lubiprostone Take 24 mcg by mouth 0 Active (AMITIZA) 24 MCG daily. capsule tamsulosin (FLOMAX) Take 0.4 mg by mouth 0 Active 0.4 mg Cap 24 hr 2 (two) times daily. capsule pantoprazole Take 40 mg by mouth 2 0 Active (PROTONIX) 40 MG (two) times daily. tablet clopidogrel Take 75 mg by mouth 0 Active (PLAVIX) 75 mg daily. tablet aspirin 325 MG Take 325 mg by mouth 0 Active tablet daily. finasteride Take 5 mg by mouth 0 Active (PROSCAR) 5 mg daily. tablet insulin lispro Inject 40 Units 0 Active (HUMALOG) 100 subcutaneously 2 unit/mL injection (two) times daily before meals. UNKNOWN [place] 3 daily, B 0 Active complex vitamins daily . Active Problems Not on file Encounters Date Type Specialty Care Team Description 01/15/2019 Anesthesia Event Gastroenterology Prabhjot Flores MD 01/15/2019 Surgery Gastroenterology Adriana Lance MD ENDOSCOPY,MUCOSAL RESECTION 01/15/2019 Hospital Encounter Gastroenterology Adriana Lance MD 12/21/2018 Hospital Encounter Pre-Admission Testing Resource, [facility] Phone after 01/19/2018 Social History Tobacco Use Types Packs/Day Years Used Date Former Smoker Smokeless Tobacco: Never Used Comments: 35 years ago Alcohol Use Drinks/Week oz/Week Comments No Alcohol Habits Answer Date Recorded How often do you have a drink containing alcohol? Never 12/21/2018 How many drinks containing alcohol do you have on a typical Not asked day when you are drinking? How often do you have six or more drinks on one occasion? Not asked Sex Assigned at Date Recorded Not on file Job Start Date Occupation Industry Not on file Not on file Not on file Travel History Travel Start Travel End No recent travel history available. Last Filed Vital Signs Vital Sign Reading Time Taken Blood Pressure 128/72 01/15/2019 5:00 PM [employer] Pulse 73 01/15/2019 5:00 PM [employer] Temperature 36.2 C (97.2 F) 01/15/2019 5:00 PM [employer] Respiratory Rate 17 01/15/2019 5:00 PM [employer] Oxygen Saturation 97% 01/15/2019 5:00 PM [employer] Inhaled Oxygen Concentration - - Weight 121.3 kg (267 lb 6.4 oz) 01/15/2019 2:03 PM [employer] Height 175.3 cm (5' 9") 01/15/2019 2:03 PM [employer] Body Mass Index 39.49 01/15/2019 2:03 PM [employer] Plan of Treatment Not on file Procedures Procedure Name Priority Date/Time Associated Diagnosis Comments REPORT OF PROCEDURE 01/15/2019 4:13 PM - ENDOSCOPY URL [employer] POCT-GLUCOSE METER Routine 01/15/2019 4:05 PM Results for this [employer] procedure are in the results section. POCT-GLUCOSE METER Routine 01/15/2019 2:11 PM Results for this [employer]ATE procedure are in the results section. UPPER 01/15/2019 1:00 PM Gastric lesion ENDOSCOPY,MUCOSAL [employer]ATE RESECTION after 01/19/2018 Results REPORT OF PROCEDURE - ENDOSCOPY URL (01/15/2019 4:13 PM SENIOR ADMINISTRATIVE [employer]IATE) Narrative Performed At POC-Glucose meter (01/15/2019 4:05 PM SENIOR ADMINISTRATIVE ASSOCIATE)Only the most recent of2 resultswithin the time period is included. POC-Glucose Meter 215 (H)Comment: TESTED AT 70 - 110 mg/dL [facility] [address] [facility] [id number] Specimen Blood Performing Organization Address City/State/Zipcode Phone Number [facility] [address] [place] [address] CENTER after 01/19/2018 Insurance Payer Benefit Plan / Group Subscriber ID Type Phone Address MEDICARE MEDICARE A B xxxxxxxxxxx Medicare MEDICAID MEDICAID OF [place] xxxxxxxxx Medicaid
--- OUTSIDE RECORDS SUMMARY | 2019-01-20 20:02 | XMS REPORT ---
:1945 Author Organization [facility] Address [address] [place] [address] Dr. Jane [address] [place] [id number] Care Team Providers Name Role Phone IRINA CLAYTON Unavailable Unavailable Problems This patient has no known problems. Allergies, Adverse Reactions, Alerts This patient has no known allergies or adverse reactions. Medications This patient has no known medications. Results Test Description Test Time Test Comments Text Results Atomic Results Result Comments POCT-GLUCOSE METER 2019-01-15 16:07:00 Test Item Value Reference Range Comments POC-GLUCOSE METER (BEAKER) (test 215 mg/dL 70-110 TESTED AT [address] [id number]) [place] [id number] POCT-GLUCOSE [id number] 14:15:00 Test Item Value Reference Range Comments POC-GLUCOSE METER (BEAKER) 157 mg/dL 70-110 TESTED AT [address] (test [id number]=[id number]) [place] [address]
[2019-01-20 20:35] LABS: Absolute Lymphocytes (CBC) 1.7 K/uL (0.7-4.9); Absolute Monocytes 0.6 K/uL (0.1-1.3); Absolute Neutrophil 6.6 K/uL (1.8-8.0); Basophils % 0.3 % (0-1.3); Hematocrit 47.6 % (39.6-49.0); Lymphocytes % 18.9 % (15.3-44.8); MPV 8.1 fL (7.6-11.3); Monocytes % 6.5 % (3.3-12.3); RBC Red Blood Cell Count 5.08 M/uL (4.33-5.43)
[2019-01-20 20:39] LABS: Protime INR 0.96
[2019-01-20] MEDS ORDERED: NA CHLORIDE 0.9% 1,000 ML ONE (20:40)
[2019-01-20] MEDS ORDERED: ONDANSETRON 4 MG/2 ML VIAL ONE (20:40)
[2019-01-20 20:59] LABS: ALT/SGPT 31 U/L (12-78); AST/SGOT 20 U/L (15-37); Albumin 3.2 g/dL (3.4-5.0); Alkaline Phosphatase 139 U/L (45-117); BUN Blood Urea Nitrogen 16 mg/dL (7-18); Bicarbonate 30 mmol/L (21-32); Bilirubin Direct 0.1 mg/dL (0-0.2); Bilirubin Total 0.5 mg/dL (0.2-1.0); Glucose Level 234 mg/dL (74-106); Magnesium 1.9 mg/dL (1.8-2.4); NT PRO-BNP 198 pg/mL (<125); Potassium 4.5 mmol/L (3.5-5.1); Protein, Total 7.4 g/dL (6.4-8.2); Sodium Level 134 mmol/L (136-145); Troponin (Emerg Dept Use Only) < 0.02 ng/mL (0.0-0.045)
[2019-01-20] MEDS ORDERED: NA CHLORIDE 0.9% 500 ML ONE (21:38)
--- NOTE | 2019-01-20 21:38 | RAD REPORT ---
EXAM DESCRIPTION: RAD - Chest Single View - 01/20/2019 9:08 pm CLINICAL HISTORY: DYSPNEA Chest pain. COMPARISON: Chest Single View dated 06/26/2018; Chest Pa And Lat (2 Views) dated 06/04/2018; Chest Sin gle View dated 03/04/2017; Abdomen 1 View (KUB) dated 03/04/2017 FINDINGS: Portable technique limits examination quality. Moderate bilateral pulmonary opacities are present probably representing pneumonia or pulmonary edema . The heart is moderately enlarged in size. No displaced fractures.
[2019-01-20 23:14] LABS: Urine Blood 1+ (NEG); Urine Glucose 1+ (NEG); Urine Protein 2+ (NEG)
[2019-01-20 23:20] LABS: Urine Bacteria <20 /HPF (NONE SEEN); Urine Culture Reflex Order REFLEXED; Urine RBC <5 /HPF (NONE SEEN)
--- NOTE | 2019-01-21 00:52 | ER ---
Nurse's Notes [facility] Name: Weston Garcia Age: 73 yrs Sex: Male : 1945 Arrival Date: 01/20/2019 Time: 19:53 Bed 30 Private MD: Bud Sharif H Diagnosis: Vomiting;Dehydration Presentation: 01/20 20:00 Presenting complaint: Patient states: DIZZY AND HIGH BLOOD SUGAR. PT ENDOSCOPY MONDAY. ak1 PT FSBGL AT HOME 280, INSULIN AND METFORMIN. PT C/O VOMITING. PT DROWSY IN TRIAGE. Transition of care: patient was not received from another setting of care. Onset of symptoms was January 20, 2019. Risk Assessment: Do you want to hurt yourself or someone else? Patient reports no desire to harm self or others. Initial Sepsis Screen: Does the patient meet any 2 criteria? No. Patient's initial sepsis screen is negative. Does the patient have a suspected source of infection? No. Patient's initial sepsis screen is negative. Care prior to arrival: None. 20:00 Acuity: GIRISH 3 ak1 20:00 Method Of Arrival: Wheelchair ak1 Triage Assessment: 20:03 General: Appears in no apparent distress. Behavior is cooperative. GI: Reports nausea, ak1 vomiting. Historical: - Allergies: 20:03 Naproxen; ak1 - Home Meds: 20:03 Humulin 70/30 100 unit/mL (70-30) Sub-Q susp 40 unit twice a day [Active]; Amitiza 8 ak1 mcg Oral cap 1 cap 2 times per day [Active]; aspirin 325 mg Oral tab 1 tab once daily [Active]; Bactrim DS Oral [Active]; finasteride 5 mg Oral tab 1 tab once daily [Active]; gabapentin 300 mg Oral cap daily [Active]; metformin 1,000 mg Oral tab 1 tab 2 times per day [Active]; omeprazole 40 mg Oral cpDR 1 cap 2 times per day [Active]; tamsulosin 0.4 mg Oral cp24 1 cap once daily [Active]; Plavix 75 mg Oral tab 1 tab once daily [Active]; pentoxifylline 400 mg Oral TbER daily [Active]; losartan 50 mg Oral tab 1 tab 2 times per day [Active]; - PMHx: 20:03 CVA; Diabetes - NIDDM; Hypertension; ak1 - PSHx: 20:03 Appendectomy; CATARACTS; PROSTATE; ak1 - Immunization history:: Adult Immunizations unknown. - Social history:: Smoking status: Patient/guardian denies using tobacco. - Ebola Screening: : No symptoms or risks identified at this time. Screenin:36 Abuse screen: Denies threats or abuse. Denies injuries from another. Nutritional rv screening: No deficits noted. Tuberculosis screening: No symptoms or risk factors identified. Fall Risk None identified. Assessment: 20:35 General: Appears in no apparent distress. uncomfortable, Behavior is calm, cooperative. rv Pain: Denies pain. Neuro: Level of Consciousness is awake, alert, obeys commands, Oriented to person, place, time, situation. Cardiovascular: Capillary refill < 3 seconds Rhythm is regular. Respiratory: Airway is patent. GI: Abdomen is round distended. : No signs and/or symptoms were reported regarding the genitourinary system. EENT: No signs and/or symptoms were reported regarding the EENT system. Derm: Skin is intact. 22:35 Reassessment: Patient appears in no apparent distress at this time. Patient and/or rv family updated on plan of care and expected duration. Pain level reassessed. Patient is alert, oriented x 3, equal unlabored respirations, skin warm/dry/pink. 01/21 01:40 Reassessment: Patient appears in no apparent distress at this time. Patient and/or rv family updated on plan of care and expected duration. Pain level reassessed. Patient is alert, oriented x 3, equal unlabored respirations, skin warm/dry/pink. PATIENT IS DROWSY. NEEDS ASSISTANCE DURING AMBULATION. PATIENT IS ALERT AND ORIENTED. FAMILY IS AWARE OF THE SITUATION AND CLAIMS THAT THIS IS NORMAL FOR THE PATIENT. Patient denies pain at this time. Vital Signs: 01/20 20:03 BP 174 / 104; Pulse 77; Resp 18; Temp 97.6; Pulse Ox 97% on R/A; Weight 121.56 kg (R); ak1 Height 5 ft. 9 in. (175.26 cm) (R); Pain 0/10; 21:00 BP 160 / 89 LA; Pulse 74; Resp 19 S; Pulse Ox 98% on R/A; rv 21:30 BP 185 / 95 LA; Pulse 82; Resp 21 S; Pulse Ox 98% on R/A; rv 22:00 BP 175 / 99 LA; Pulse 66; Resp 21 S; Pulse Ox 96% on R/A; rv 22:30 BP 122 / 96 LA; Pulse 77; Resp 18 S; Pulse Ox 97% on R/A; rv 23:23 BP 163 / 99 LA; Pulse 80; Resp 17 S; Pulse Ox 96% on R/A; rv 01/21 00:00 BP 159 / 76 LA; Pulse 70; Resp 14 S; Pulse Ox 96% on R/A; rv 00:30 BP 157 / 100 LA; Pulse 81; Resp 20 S; Pulse Ox 97% on R/A; rv 01:00 BP 145 / 98 LA; Pulse 83; Resp 15 S; Pulse Ox 97% on R/A; rv 01:30 BP 147 / 96 LA; Pulse 81; Resp 14 S; Pulse Ox 97% on R/A; rv 01/20 20:03 Body Mass Index 39.58 (121.56 kg, 175.26 cm) ak1 ED Course: 01/20 19:53 Patient arrived in ED. am2 19:53 Bud Sharif DO is Private Physician. am2 20:01 Triage completed. ak1 20:03 Arm band placed on Patient placed in an exam room, Patient notified of wait time. ak1 20:08 Skip Castellano MD is Attending Physician. tw4 20:25 Inserted saline lock: 18 gauge in right antecubital area, using aseptic technique. rv Blood collected. 20:36 Patient has correct armband on for positive identification. Bed in low position. Call rv light in reach. Side rails up X 1. Adult w/ patient. monitoring specialist on. Pulse ox on. NIBP on. 20:37 XRAY Chest (1 view) Sent. rv 20:37 Basic Metabolic Panel Sent. rv 21:08 XRAY Chest (1 view) In Process Unspecified. EDMS 23:24 CT Abd/Pelvis - W/Contrast In Process Unspecified. EDMS 01/21 00:50 Bud Sharif DO is Referral Physician. tw4 01:42 No provider procedures requiring assistance completed. IV discontinued, bleeding rv controlled, No redness/swelling at site. Pressure dressing applied. Administered Medications: 01/20 20:30 Drug: Zofran 4 mg Route: IVP; Site: right antecubital; rv 01/21 01:47 Follow up: Response: Nausea unchanged rv 01/20 20:30 Drug: NS 0.9% 1000 ml Route: IV; Rate: 1 bolus; Site: right antecubital; rv 01/21 01:48 Follow up: IV Status: Completed infusion rv 01/20 23:00 Drug: Phenergan 12.5 mg Route: IVP; Site: right antecubital; rv 01/21 01:49 Follow up: Response: Nausea is decreased rv Outcome: 00:51 Discharge ordered by . tw4 01:49 Discharged to home via wheelchair, with family. rv 01:49 Condition: good 01:49 Discharge instructions given to patient, family, Instructed on discharge instructions, follow up and referral plans. medication usage, Demonstrated understanding of instructions, follow-up care, medications, Prescriptions given X 1. 01:50 Patient left the ED. rv Signatures: Dispatcher [employer] EDMS Dayan Mccormick, RN RN ak1 Yamel Jordan Terrence, MD MD tw4 Milton Carr RN RN rv Corrections: (The following items were deleted from the chart) :01/20 20:00 Presenting complaint: Patient states: DIZZY AND HIGH BLOOD SUGAR. PT ak1 ENDOSCOPY MONDAY. PT FSBGL AT HOME 280, INSULIN AND METFORMIN. PT C/O VOMITING. ak1
--- NOTE | 2019-01-21 00:52 | EDPHYS ---
Physician Documentation [facility] Name: Weston Garcia Age: 73 yrs Sex: Male : 1945 Arrival Date: 01/20/2019 Time: 19:53 Bed 30 Private MD: Bud Sharif H ED Physician Skip Castellano HPI: 01/21 05:13 This 73 yrs old Male presents to ER via Wheelchair with complaints of tw4 Vomiting, Dizziness, High Blood Sugar. 05:13 The patient presents to the emergency department with nausea, vomiting. Onset: The tw4 symptoms/episode began/occurred today. Possible causes: unknown. The symptoms are aggravated by nothing. The symptoms are alleviated by nothing. Associated signs and symptoms: The patient has no apparent associated signs or symptoms. Severity of symptoms: At their worst the symptoms were moderate in the emergency department the symptoms are unchanged. The patient has not experienced similar symptoms in the past. Historical: - Allergies: 01/20 20:03 Naproxen; ak1 - Home Meds: 20:03 Humulin 70/30 100 unit/mL (70-30) Sub-Q susp 40 unit twice a day [Active]; Amitiza 8 ak1 mcg Oral cap 1 cap 2 times per day [Active]; aspirin 325 mg Oral tab 1 tab once daily [Active]; Bactrim DS Oral [Active]; finasteride 5 mg Oral tab 1 tab once daily [Active]; gabapentin 300 mg Oral cap daily [Active]; metformin 1,000 mg Oral tab 1 tab 2 times per day [Active]; omeprazole 40 mg Oral cpDR 1 cap 2 times per day [Active]; tamsulosin 0.4 mg Oral cp24 1 cap once daily [Active]; Plavix 75 mg Oral tab 1 tab once daily [Active]; pentoxifylline 400 mg Oral TbER daily [Active]; losartan 50 mg Oral tab 1 tab 2 times per day [Active]; - PMHx: 20:03 CVA; Diabetes - NIDDM; Hypertension; ak1 - PSHx: 20:03 Appendectomy; CATARACTS; PROSTATE; ak1 - Immunization history:: Adult Immunizations unknown. - Social history:: Smoking status: Patient/guardian denies using tobacco. - Ebola Screening: : No symptoms or risks identified at this time. ROS: 01/21 05:13 Constitutional: Negative for fever, chills, and weight loss, Cardiovascular: Negative tw4 for chest pain, palpitations, and edema, Respiratory: Negative for shortness of breath, cough, wheezing, and pleuritic chest pain. Abdomen/GI: Positive for nausea and vomiting, nausea, vomiting, Negative for abdominal pain, abdominal cramps, abdominal distension, anorexia, dysphagia, hematemesis, black/tarry stool, rectal pain, rectal bleeding. Exam: 05:13 Constitutional: This is a well developed, well nourished patient who is awake, alert, tw4 and in no acute distress. Head/Face: Normocephalic, atraumatic. Chest/axilla: Normal chest wall appearance and motion. Nontender with no deformity. No lesions are appreciated. Cardiovascular: Regular rate and rhythm with a normal S1 and S2. No gallops, murmurs, or rubs. Normal PMI, no JVD. No pulse deficits. Respiratory: Lungs have equal breath sounds bilaterally, clear to auscultation and percussion. No rales, rhonchi or wheezes noted. No increased work of breathing, no retractions or nasal flaring. Abdomen/GI: Soft, non-tender, with normal bowel sounds. No distension or tympany. No guarding or rebound. No evidence of tenderness throughout. Back: No spinal tenderness. No costovertebral tenderness. Full range of motion. MS/ Extremity: Pulses equal, no cyanosis. Neurovascular intact. Full, normal range of motion. Neuro: Awake and alert, GCS 15, oriented to person, place, time, and situation. Cranial nerves II-XII grossly intact. Motor strength 5/5 in all extremities. Sensory grossly intact. Cerebellar exam normal. Normal gait. Vital Signs: 01/20 20:03 BP 174 / 104; Pulse 77; Resp 18; Temp 97.6; Pulse Ox 97% on R/A; Weight 121.56 kg (R); ak1 Height 5 ft. 9 in. (175.26 cm) (R); Pain 0/10; 21:00 BP 160 / 89 LA; Pulse 74; Resp 19 S; Pulse Ox 98% on R/A; rv 21:30 BP 185 / 95 LA; Pulse 82; Resp 21 S; Pulse Ox 98% on R/A; rv 22:00 BP 175 / 99 LA; Pulse 66; Resp 21 S; Pulse Ox 96% on R/A; rv 22:30 BP 122 / 96 LA; Pulse 77; Resp 18 S; Pulse Ox 97% on R/A; rv 23:23 BP 163 / 99 LA; Pulse 80; Resp 17 S; Pulse Ox 96% on R/A; rv 01/21 00:00 BP 159 / 76 LA; Pulse 70; Resp 14 S; Pulse Ox 96% on R/A; rv 00:30 BP 157 / 100 LA; Pulse 81; Resp 20 S; Pulse Ox 97% on R/A; rv 01:00 BP 145 / 98 LA; Pulse 83; Resp 15 S; Pulse Ox 97% on R/A; rv 01:30 BP 147 / 96 LA; Pulse 81; Resp 14 S; Pulse Ox 97% on R/A; rv 01/20 20:03 Body Mass Index 39.58 (121.56 kg, 175.26 cm) ak1 MDM: 01/20 20:09 Patient medically screened. tw4 01/21 05:13 Differential diagnosis: Nonspecific abd pain, gastritis. Data reviewed: vital signs, tw4 nurses notes. Data interpreted: Pulse oximetry: Interpretation: normal. Medication response: Response to treatment: the patient's symptoms have markedly improved after treatment, and as a result, I will discharge patient. Special discussion: Based on the patient's Hx, exam, and Dx evaluation, there is no indication for emergent surgery or inpatient Tx. It is understood by the patient/guardian that if the Sx's persist or worsen they need to return immediately for re-evaluation. I discussed with the patient/guardian in detail that at this point there is no indication for admission to the hospital. It is understood, however, that if the symptoms persist or worsen the patient needs to return immediately for re-evaluation. 01/20 20:10 Order name: Basic Metabolic Panel; Complete Time: 21:47 tw4 01/20 21:47 Interpretation: Normal except: NA 134; GLUC 234; GFR 77. tw4 01/20 20:10 Order name: CBC with Diff; Complete Time: 00:11 tw4 01/20 20:10 Order name: LFT's; Complete Time: 21:47 tw4 01/20 21:48 Interpretation: Normal except: ALK 139; ALB 3.2; GLOB 4.2; A/G 0.8. [facility] 01/20 20:10 Order name: Magnesium; Complete Time: 21:49 [facility] 01/20 21:49 Interpretation: Within normal limits: MG 1.9. [facility] 01/20 20:10 Order name: NT PRO-BNP; Complete Time: 21:48 [facility] 01/20 21:49 Interpretation: Normal except: NT PRO-BNP 198. [facility] 01/20 20:10 Order name: PT-INR; Complete Time: 21:49 [facility] 01/20 21:49 Interpretation: Within normal limits: PT 11.4. [facility] 01/20 20:10 Order name: Troponin (emerg Dept Use Only); Complete Time: 21:50 [facility] 01/20 21:50 Interpretation: Within normal limits: TROPED < 0.02. [facility] 01/20 20:10 Order name: XRAY Chest (1 view); Complete Time: 21:50 [facility] 01/20 21:24 Order name: Glucose, Ancillary Testing; Complete Time: 21:49 [facility] 01/20 21:49 Interpretation: Normal except: GLUC,ANCIL 238. [facility] 01/20 21:46 Order name: CT Abd/Pelvis - W/Contrast [facility] 01/20 22:34 Order name: Urine Dipstick--Ancillary (enter results); Complete Time: 00:11 01/20 22:51 Order name: Urine Microscopic Only; Complete Time: 00:08 01/20 23:22 Order name: Urine Culture [facility] 01/20 20:10 Order name: EKG; Complete Time: 20:11 [facility] 01/20 20:10 Order name: Cardiac monitoring; Complete Time: 20:37 [facility] 01/20 20:10 Order name: EKG - Nurse/Tech; Complete Time: 20:37 [facility] 01/20 20:10 Order name: IV Saline Lock; Complete Time: 20:37 [facility] 01/20 20:10 Order name: Labs collected and sent; Complete Time: 20:37 [facility] 01/20 20:10 Order name: O2 Per Protocol; Complete Time: 20:37 [facility] 01/20 20:10 Order name: O2 Sat Monitoring; Complete Time: 20:37 tw4 EC:13 Rate is 93 beats/min. Rhythm is regular. QRS [place] is Normal. CA interval is normal. QRS tw4 interval is normal. QT interval is normal. No Q waves. T waves are Normal. No ST changes noted. Clinical impression: Abnormal EKG without significant change. Interpreted by me. Reviewed by me. Administered Medications: 01/20 20:30 Drug: Zofran 4 mg Route: IVP; Site: right antecubital; rv 01/21 01:47 Follow up: Response: Nausea unchanged rv 01/20 20:30 Drug: NS 0.9% 1000 ml Route: IV; Rate: 1 bolus; Site: right antecubital; rv 01/21 01:48 Follow up: IV Status: Completed infusion rv 01/20 23:00 Drug: Phenergan 12.5 mg Route: IVP; Site: right antecubital; rv 01/21 01:49 Follow up: Response: Nausea is decreased rv Disposition: 01/21/19 00:51 Discharged to Home. Impression: Vomiting, Dehydration. - Condition is Stable. - Discharge Instructions: Dehydration, Adult, Nausea and Vomiting, Adult, [id number], Rehydration, Elderly, Dehydration, Elderly, [id number]. - Prescriptions for Zofran 4 mg Oral Tablet - take 1 tablet by ORAL route every 12 hours As needed; 20 tablet. - Medication Reconciliation Form, Thank You Letter, Antibiotic Education, Prescription Opioid Use form. - Follow up: Bud Sharif DO; When: Upon discharge from the Emergency Department; Reason: If symptoms return, Recheck today's complaints, Continuance of care. - Problem is new. - Symptoms have improved. Signatures: Dispatcher [employer] EDMS Dayan Mccormick RN RN ak1 Skip Castellano MD MD tw4 Milton Carr RN RN rv Corrections: (The following items were deleted from the chart) 01:50 00:51 01/21/2019 00:51 Discharged to Home. Impression: Vomiting; Dehydration. Condition rv is Stable. Forms are Medication Reconciliation Form, Thank You Letter, Antibiotic Education, Prescription Opioid Use. Follow up: Bud Sharif; When: Upon discharge from the Emergency Department; Reason: If symptoms return, Recheck today's complaints, Continuance of care. Problem is new. Symptoms have improved. tw4
[2019-01-21 02:46] VITALS: TEMP 97.6
[2019-01-21 02:56] VITALS: O2SAT 97
[2019-01-21 02:59] VITALS: BP 147/96
--- NOTE | 2019-01-21 08:35 | EKG ---
Test Date: 2019-01-20 Test Time: 19:25:37 Lamination Technician: MEASUREMENT RESULTS: Intervals: Rate: 93 OK: 172 QRSD: 102 QT: 384 QTc: 477 [place]: P: 58 OK: 172 QRS: 111 T: -30 INTERPRETIVE STATEMENTS: Sinus rhythm with occasional premature ventricular complexes Left posterior fascicular block Inferior infarct, age undetermined Abnormal ECG Compared to ECG 06/26/2018 19:01:58 Ventricular premature complex(es) now present Left posterior fascicular block now present Left-axis deviation no longer present Myocardial infarct finding still present Electronically Signed On 01-21-19 08:34:27 CDT by Sharif Streeter
--- NOTE | 2019-01-21 12:18 | RAD REPORT ---
EXAM DESCRIPTION: CT Abdomen and Pelvis With Intravenous Contrast CLINICAL HISTORY: The patient is 73 years old and is Male; ABD PAIN TECHNIQUE: Axial computed tomography images of the abdomen and pelvis with intravenous contrast. S agittal and coronal reformatted images were created and reviewed. This CT exam was performed using one or more of the following dose reduction techniques: automated exposure control, adjustment of t he mA and/or kV according to patient size, and/or use of iterative reconstruction technique. COMPARISON: CT abdomen and pelvis with IV contrast dated November 15, 2018 (report not available). FINDINGS: LUNG BASES: Prominence and interstitial maintained scattered cystic changes of the lung bases. HEART: Cardiomegaly coronary calcifications. ABDOMEN: LIVER: Unchanged peripherally calcified peripherally enhancing 5.8 x 4.4 cm right hepatic lesion GALLBLADDER AND BILE DUCTS: Unchanged cholelithiasis without acute cholecystitis. No ductal dilation. PANCREAS: Unremarkable. No mass. No ductal dilation. SPLEEN: Unremarkable. No splenomegaly. ADRENALS: Unremarkable. No mass. KIDNEYS AND URETERS: Scattered subcentimeter right renal hypodensities, too small to characterize by CT criteria, likely cysts. No hydronephrosis. STOMACH AND BOWEL: Unremarkable. No obstruction. No mucosal thickening. PELVIS: APPENDIX: No findings to suggest acute appendicitis. BLADDER: Marked distention of the urinary bladder. REPRODUCTIVE: Marked enlargement of the prostate measuring 6.5 x 5.6 x 5.9 cm. ABDOMEN and PELVIS: INTRAPERITONEAL SPACE: Unremarkable. No free air. No significant fluid collection. BONES/JOINTS: Unchanged moderate multilevel degenerative changes. No acute fracture. No dislocation. SOFT TISSUES: Scarring of the right lower abdominal soft tissues. VASCULATURE: Minimal calcification of the abdominal aorta. No abdominal aortic aneurysm. LYMPH NODES: Unremarkable. No enlarged lymph nodes. IMPRESSION: 1. No significant interval change when compared to prior exam. 2. Marked fluid distention of the urinary bladder likely secondary to outlet obstruction from marke d prostatomegaly. Correlate with PSA values. 3. Unchanged large peripheral enhancing/calcified right hepatic lesion, likely hemangioma. Abdomina l ultrasound may be of diagnostic use. 4. Unchanged cholelithiasis without acute cholecystitis. 5. Bibasilar chronic lung changes with scattered cystic lesions. CT of the chest is recommended for better characterization. Electronically signed by: Mau Matthew DO 01/20/2019 11:37 PM CDT Due to temporary technical issues with the PACS/Fluency reporting system, reports are being signed by the in house radiologist as a courtesy to ensure prompt reporting. The interpreting radiologist is f ully responsible for the content of the report.
== END 2019-01-21 01:50 | disposition home or self-care (01) ==
LOC: ER 19:49
DX: R11.2 Nausea with vomiting, unspecified (principal); E86.0 Dehydration; R42 Dizziness and giddiness; E11.9 Type 2 diabetes mellitus without complications; I10 Essential (primary) hypertension; Z86.73 Personal history of transient ischemic attack (TIA), and cerebral infarction without residual deficits; Z79.82 Long term (current) use of aspirin; Z79.4 Long term (current) use of insulin
CPT/HCPCS: 96361; 93005; 87088; 85025; 87086; 80048; 36415; 83735; 85610; 82962 ×2; 80076; 84484; 83880; 74177; 71045; 96375; 96374; 99284; Q9967; J7030; J2405; 81003; 81015

== ENCOUNTER 2019-01-22 17:44 | Emergency (ER) | payer OTHER ==
--- OUTSIDE RECORDS SUMMARY | 2019-01-22 17:46 | XMS REPORT ---
:1945 [facility] Address [address] [place] [address] [address] [place] [address] Care Team Providers Name Role Phone ADRIANA LANCE Unavailable Unavailable Problems This patient has no known problems. Allergies, Adverse Reactions, Alerts This patient has no known allergies or adverse reactions. Medications This patient has no known medications. 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 The specimen is peña and hemorrhagic. The stalk is inked blue. The specimen is serially sectioned showing a mottled, partially fatty and partially peña-pink, lobulated cut surface. The specimen is entirely submitted as follows: A1, margin en face resection, inked side down; A2-A15, entire polyp from proximal to distal. CG/ew The entire polyp is submitted for histological evaluation and shows a Bro gland hamartoma. There is a single non-necrotizing epithelioid granuloma, most likely representing a reactive change. No dysplasia is seen. The duodenal mucosa shows foci of gastric metaplasia.AFB and GMS stains are negative for micro-organisms.The interpretation of this case included the use of immunohistochemistry or special stains. Immunohistochemistry technical testing was performed at [facility], Pathology Laboratory where it was developed and its performance characteristics were determined. It has not been cleared or approved by the U.S. Food and Drug Administration. The FDA has determined that such clearance or approval is not necessary. The test is used for clinical purposes. It should not be regarded as investigational or for research. This laboratory is certified under the Clinical Laboratory Improvement Amendments of 1988 (CLIA-88) as qualified to perform high complexity clinical laboratory testing. POCT-GLUCOSE METER 2019-01-15 16:07:00 Test Item Value Reference Range Comments POC-GLUCOSE METER (BEPAK) (test 215 mg/dL 70-[address] [facility] [address] [place] [address] [id number]) [facility] [address] POCT-GLUCOSE [id number] 14:15:00 Test Item Value Reference Range Comments POC-GLUCOSE METER ([employer]) 157 mg/dL 70-110 TESTED AT [address] (test [id number]) [facility] [id number]
--- OUTSIDE RECORDS SUMMARY | 2019-01-22 17:46 | XMS REPORT | Clinical Summary ---
:1945 Author Organization [facility] Address [address] [place] [address] Care Team Providers Name Role Phone Bud [...] injection (two) times daily before meals. UNKNOWN [place] 3 daily, B 0 Active complex vitamins daily . Active Problems Not on file Encounters Date Type Specialty Care Team Description 01/15/2019 Anesthesia Event Gastroenterology Prabhjot Flores MD 01/15/2019 Surgery Gastroenterology Adriana Lance MD ENDOSCOPY,MUCOSAL RESECTION 01/15/2019 Hospital Encounter Gastroenterology Adriana Lance MD 12/21/2018 Hospital Encounter Pre-Admission Testing Resource, [facility] Preadmit Phone after 01/21/2018 Social History Tobacco Use Types Packs/Day Years [...] Taken Blood Pressure 128/72 01/15/2019 5:00 PM [facility] [facility] Pulse 73 01/15/2019 5:00 PM [employer] [facility] Temperature 36.2 C (97.2 F) 01/15/2019 5:00 PM [employer] [facility] Respiratory Rate 17 01/15/2019 5:00 PM [employer] [facility] Oxygen Saturation 97% 01/15/2019 5:00 PM [employer] [facility] Inhaled Oxygen Concentration - - Weight 121.3 kg (267 lb 6.4 oz) 01/15/2019 2:03 PM [employer] [facility] Height 175.3 cm (5' 9") 01/15/2019 2:03 PM [employer] [facility] Body Mass Index 39.49 01/15/2019 2:03 PM [employer] [facility] Plan of Treatment Not on file Procedures Procedure Name Priority Date/Time Associated Comments Diagnosis REPORT OF PROCEDURE 01/15/2019 4:13 - ENDOSCOPY URL PM [employer] [facility] POCT-GLUCOSE METER Routine 01/15/2019 4:05 Results for this PM [employer] [facility] procedure are in the results section. TISSUE EXAM AP Routine 01/15/2019 3:43 Results for this PM [employer] [facility] procedure are in the results section. POCT-GLUCOSE METER Routine 01/15/2019 2:11 Results for this PM [employer] [facility] procedure are in the results section. UPPER 01/15/2019 1:00 Gastric lesion ENDOSCOPY,MUCOSAL PM [employer] [facility] RESECTION after 01/21/2018 Results REPORT OF PROCEDURE - ENDOSCOPY URL (01/15/2019 4:13 PM [employer] [facility]) Narrative Performed At POC-Glucose meter (01/15/2019 4:05 PM [employer] [facility])Only the most recent of2 resultswithin the time period is included. POC-Glucose Meter 215 (H)Comment: TESTED AT 70 - 110 mg/dL [facility] [address] [facility] [address] Specimen Blood Performing Organization Address City/State/Zipcode Phone Number [facility] [address] [place] [address] [phone] CENTER Tissue Exam (01/15/2019 3:43 PM [employer]) Case Report Surgical Pathology Report Case: [id number] [facility] Authorizing Provider:Adriana Lance Collected: 01/15/2019 1543 [facility] MD Abdirizak Ordering Location: [facility] Endoscopy Received: 01/16/2019 0816 Services Pathologist: Yudi Macdonald MD Specimen:Polyp, Duodenum DIAGNOSIS DUODENUM, POLYPECTOMY [facility] - BRO GLAND HAMARTOMA (SIZE 8 CM) [facility] - CAUTERIZED MARGIN, NEGATIVE FOR LESION - FOCAL NON-NECROTIZING EPITHELIOID GRANULOMA Signing Pathologist Direct Phone Line: [phone] CPT Code(s) 42495, 77750 x2 [facility] CLINICAL HISTORY Gastric lesion [facility] SPECIMEN SOURCE Duodenal polyp [facility] GROSS DESCRIPTION The specimen is received in a [facility] formalin-filled container [facility] labeled with the patient's information and labeled [...] entire polyp from proximal to distal. CG/ew MICROSCOPIC DESCRIPTION The entire polyp is submitted for histological evaluation and shows a Bro gland hamartoma. There is a single non- necrotizing epithelioid granuloma, most likely representing a reactive change. No dys [facility] plasia is seen. The duodenal mucosa shows foci of gastric metaplasia. [facility] AFB and GMS stains are negative for micro-organisms. SPECIAL STUDIES The interpretation of this case included the use of immunohistochemistry or special stains. [facility] Immunohistochemistry technical testing was performed at [facility], Pathology Laboratory where it was developed and its performance characteristics were determined. It has not be en cleared or approved by the U.S. Food and Drug Administration. The FDA has determined that such clearance or approval is not necessary. The test is used for clinical purposes. It should not be regarde d as investigational or for research. This laboratory is certified under the Clinical Laboratory Improvement Amendments of 1988 (CLIA-88) as qualified to perform high complexity clinical laboratory testing. Specimen Tissue - Polyp, Duodenum Performing Organization Address City/State/Zipcode Phone Number [facility] [address] [place] [address] [phone] CENTER after 01/21/2018 Insurance Payer Benefit Plan / Group Subscriber ID Type Phone Address MEDICARE MEDICARE A B xxxxxxxxxxx Medicare MEDICAID MEDICAID OF [place] xxxxxxxxx Medicaid ([place] [address]
--- NOTE | 2019-01-22 18:58 | RAD REPORT ---
EXAM DESCRIPTION: CT - Head Brain Wo Cont - 01/22/2019 6:49 pm CLINICAL HISTORY: Dizziness;Headache Headache, drowsiness, fever COMPARISON: Head Brain Wo Cont dated 10/18/2016; HEAD BRAIN W O CONTRAST dated 03/19/2015 TECHNIQUE: All CT scans are performed using dose optimization technique as appropriate and may inclu de automated exposure control or mA/KV adjustment according to patient size. FINDINGS: No intracranial hemorrhage, hydrocephalus or extra-axial fluid collection.Mild generalized brain atrophy is present with mild periventricular and deep white matter chronic microvascular ische jose changes.No areas of brain edema or evidence of midline shift. The paranasal sinuses and mastoids are clear. The calvarium is intact. IMPRESSION: No acute intracranial abnormality.
[2019-01-22] MEDS ORDERED: LOSARTAN POTASSIUM 50 MG TABLET ONE (21:16)
--- NOTE | 2019-01-22 21:57 | ER ---
Nurse's Notes [facility] Name: Weston Garcia Age: 73 yrs Sex: Male : 1945 Arrival Date: 01/22/2019 Time: 17:45 Bed 6 Private MD: Bud Sharif H Diagnosis: Dizziness and giddiness;Unspecified abnormalities of gait and mobility Presentation: 01/22 18:03 Presenting complaint: Headache and nausea x 3 days. Denies fever/diarrhea/abd pain. hb Transition of care: patient was not received from another setting of care. Onset of symptoms was January 20, 2019. Risk Assessment: Do you want to hurt yourself or someone else? Patient reports no desire to harm self or others. Care prior to arrival: None. 18:03 Method Of Arrival: Wheelchair hb 18:03 Acuity: GIRISH 3 hb 20:00 Initial Sepsis Screen: Does the patient meet any 2 criteria? No. Patient's initial ea sepsis screen is negative. Does the patient have a suspected source of infection? No. Patient's initial sepsis screen is negative. Historical: - Allergies: 18:06 Naproxen; hb - Immunization history:: Adult Immunizations up to date. - Social history:: Smoking status: Patient/guardian denies using tobacco. - Ebola Screening: : No symptoms or risks identified at this time. Screenin:48 Abuse screen: Denies threats or abuse. Nutritional screening: No deficits noted. ea Tuberculosis screening: No symptoms or risk factors identified. Fall Risk IV access (20 points). Assessment: 20:00 General: Appears in no apparent distress. Behavior is appropriate for age. Pain: Denies ea pain. Neuro: Level of Consciousness is awake, alert, obeys commands, Oriented to person, place, time, situation. Cardiovascular: Patient's skin is warm and dry. Respiratory: Airway is patent Respiratory effort is even, unlabored, Respiratory pattern is regular, symmetrical. Derm: Skin is dry, Skin is pale, Skin temperature is warm. Musculoskeletal: Circulation, motion, and sensation intact. 21:40 Reassessment: Patient and/or family updated on plan of care and expected duration. Pain ea level reassessed. Patient is alert, oriented x 3, equal unlabored respirations, skin warm/dry/pink. Pt ambulated approximately 10 ft, tolerated poorly, pt reports he feels dizzy even at rest. Provider notified. Med order obtained. 22:28 Reassessment: Patient and/or family updated on plan of care and expected duration. Pain ea level reassessed. Patient is alert, oriented x 3, equal unlabored respirations, skin warm/dry/pink. Discharge instructions given to patient, verbalized the understanding of instruction. Vital Signs: 18:04 BP 155 / 102; Pulse 74; Resp 16; Temp 97.1(TE); Pulse Ox 99% on R/A; Pain 4/10; hb 19:45 BP 144 / 90; Pulse 70; Resp 18; Pulse Ox 100% ; ea 20:30 BP 162 / 97; Pulse 71; Resp 18; Temp 98.5; Pulse Ox 99% on R/A; ea 21:12 BP 154 / 84; Pulse 72; Resp 18; Pulse Ox 100% on R/A; Pain 0/10; mg2 21:30 BP 153 / 104 Supine; Pulse 76; ea 21:40 BP 138 / 73 Sitting; Pulse 75; ea 21:45 BP 131 / 79 Standing; Pulse 70; ea [place] Coma Score: 18:47 Eye Response: spontaneous(4). Verbal Response: oriented(5). Motor Response: obeys snw commands(6). Total: 15. ED Course: 17:45 Patient arrived in ED. as 17:45 Bud Sharif DO is Private Physician. as 18:04 Triage completed. hb 18:06 Arm band placed on. hb 18:22 Pattie Shah FNP-C [facility]. snw 18:22 Myke Gee MD is Attending Physician. snw 18:41 Flu Sent. aa5 18:49 CT Head Brain wo Cont In Process Unspecified. EDMS 18:58 CT completed. Patient tolerated procedure well. Patient moved back from CT. nj 19:03 Inserted saline lock: 20 gauge in left antecubital area, using aseptic technique. Blood ag collected. 19:04 Flu and/or RSV swab sent to lab. ag 20:47 Cathie Aviles, RN is Primary Nurse. ea 20:49 Patient has correct armband on for positive identification. Bed in low position. Call ea light in reach. Side rails up X 1. 21:56 Bud Sharif DO is Referral Physician. snw 22:25 No provider procedures requiring assistance completed. IV discontinued, intact, ea bleeding controlled, No redness/swelling at site. Pressure dressing applied. Administered Medications: 21:12 Drug: Losartan 50 mg Route: PO; mg2 22:04 Follow up: Response: No adverse reaction; Blood pressure is lowered ea 22:01 Drug: Antivert 50 mg Route: PO; ea 22:04 Follow up: Response: Medication administered at discharge. ea Outcome: 21:56 Discharge ordered by MD. snw 22:20 Discharged to home via wheelchair, with family. ea 22:20 Condition: good 22:20 Discharge instructions given to patient, family, Instructed on discharge instructions, follow up and referral plans. medication usage, Demonstrated understanding of instructions, follow-up care, medications, Prescriptions given X 1. 22:27 Patient left the ED. ag4 Signatures: Dispatcher [employer] EDMS Pattie Shah, PLANT ANATOMY TEACHER-C PLANT ANATOMY TEACHER-CsnKelle Hutchinson Audri, RN RN aa5 Leidy De Dios Heather, RN Jesse Leyva Elena, RN RN ea [place], Michele RN KEILA mg2 Farshad Brooks ag4 Corrections: (The following items were deleted from the chart) 22:06 21:40 Reassessment: Patient and/or family updated on plan of care and expected ea duration. Pain level reassessed. Patient is alert, oriented x 3, equal unlabored respirations, skin warm/dry/pink. Pt ambulated approximately 10 ft, tolerated poorly, pt reports he feels dizzy even at rest ea
--- NOTE | 2019-01-22 21:57 | EDPHYS ---
Physician Documentation [facility] Name: Weston Garcia Age: 73 yrs Sex: Male : 1945 Arrival Date: 01/22/2019 Time: 17:45 Bed 6 Private MD: Bud Sharif H ED Physician Myke Gee HPI: 01/22 22:31 This 73 yrs old Male presents to ER via Wheelchair with complaints of snw Headache, Dizziness, Nausea. 22:31 The patient complains of pain to the occiput. The patient describes the headache as snw throbbing with pulse. Onset: The symptoms/episode began/occurred just prior to arrival, 3 day(s) ago, and became persistent. Associated signs and symptoms: Pertinent positives: pt states he was dizzy and nauseated yesterday, feeling better per report today but continues with HTN and feeling off balance. Pt and family state that pt has rx for HTN but does not take as directed. Pt only takes half. Has walker but does not use it.. Severity of symptoms: At its worst the pain was mild, earlier today. Headache History: Denies prior headaches. The patient has experienced similar episodes in the past. The patient has been recently seen by a physician: The patient has been recently seen at the [facility] Emergency Department, this week. Historical: - Allergies: 18:06 Naproxen; hb - Immunization history:: Adult Immunizations up to date. - Social history:: Smoking status: Patient/guardian denies using tobacco. - Ebola Screening: : No symptoms or risks identified at this time. ROS: 22:31 Constitutional: Negative for fever, chills, and weight loss, Eyes: Negative for injury, snw pain, redness, and discharge, ENT: Negative for injury, pain, and discharge, Neck: Negative for injury, pain, and swelling, Cardiovascular: Negative for chest pain, palpitations, and edema, Respiratory: Negative for shortness of breath, cough, wheezing, and pleuritic chest pain, Abdomen/GI: Negative for abdominal pain, nausea, vomiting, diarrhea, and constipation, Back: Negative for injury and pain, : Negative for injury, bleeding, discharge, and swelling, MS/Extremity: Negative for injury and deformity, Skin: Negative for injury, rash, and discoloration. 22:31 Neuro: Positive for dizziness, gait disturbance, feels pulse in occiput. Exam: 22:29 Constitutional: This is a well developed, well nourished patient who is awake, alert, snw and in no acute distress. Head/Face: Normocephalic, atraumatic. Eyes: Pupils equal round and reactive to light, extra-ocular motions intact. Lids and lashes normal. Conjunctiva and sclera are non-icteric and not injected. Cornea within normal limits. Periorbital areas with no swelling, redness, or edema. ENT: Nares patent. No nasal discharge, no septal abnormalities noted. Tympanic membranes are normal and external auditory canals are clear. Oropharynx with no redness, swelling, or masses, exudates, or evidence of obstruction, uvula midline. Mucous membranes moist. Neck: Trachea midline, no thyromegaly or masses palpated, and no cervical lymphadenopathy. Supple, full range of motion without nuchal rigidity, or vertebral point tenderness. No Meningismus. Chest/axilla: Normal chest wall appearance and motion. Nontender with no deformity. No lesions are appreciated. Cardiovascular: Regular rate and rhythm with a normal S1 and S2. No gallops, murmurs, or rubs. Normal PMI, no JVD. No pulse deficits. Respiratory: Lungs have equal breath sounds bilaterally, clear to auscultation and percussion. No rales, rhonchi or wheezes noted. No increased work of breathing, no retractions or nasal flaring. Abdomen/GI: Soft, non-tender, with normal bowel sounds. No distension or tympany. No guarding or rebound. No evidence of tenderness throughout. Back: No spinal tenderness. No costovertebral tenderness. Full range of motion. Skin: Warm, dry with normal turgor. Normal color with no rashes, no lesions, and no evidence of cellulitis. MS/ Extremity: Pulses equal, no cyanosis. Neurovascular intact. Full, normal range of motion. Psych: Awake, alert, with orientation to person, place and time. Behavior, mood, and affect are within normal limits. 22:29 Neuro: Orientation: is normal, Mentation: appropriate for stated age, Memory: is normal, Cranial nerves: extraocular movements are intact, Cerebellar function: difficulty with ambulation - has been ongoing for some time - pt has walker but does not use it, Motor: is normal, Sensation: is normal, Gait: is unsteady, seizure activity, is not displayed by the patient, Abnormal movements: there are no abnormal movements. Vital Signs: 18:04 BP 155 / 102; Pulse 74; Resp 16; Temp 97.1(TE); Pulse Ox 99% on R/A; Pain 4/10; hb 19:45 BP 144 / 90; Pulse 70; Resp 18; Pulse Ox 100% ; ea 20:30 BP 162 / 97; Pulse 71; Resp 18; Temp 98.5; Pulse Ox 99% on R/A; ea 21:12 BP 154 / 84; Pulse 72; Resp 18; Pulse Ox 100% on R/A; Pain 0/10; mg2 21:30 BP 153 / 104 Supine; Pulse 76; ea 21:40 BP 138 / 73 Sitting; Pulse 75; ea 21:45 BP 131 / 79 Standing; Pulse 70; ea Daniel Coma Score: 18:47 Eye Response: spontaneous(4). Verbal Response: oriented(5). Motor Response: obeys snw commands(6). Total: 15. MDM: 18:23 Patient medically screened. snw 18:47 ED course: pt in CT. snw 22:18 Data reviewed: vital signs, nurses notes. Data interpreted: Pulse oximetry: on room air snw is 100 %. Interpretation: normal. Counseling: I had a detailed discussion with the patient and/or guardian regarding: the historical points, exam findings, and any diagnostic results supporting the discharge/admit diagnosis, the presence of at least one elevated blood pressure reading (>120/80) during this emergency department visit, lab results, radiology results, the need for outpatient follow up, to return to the emergency department if symptoms worsen or persist or if there are any questions or concerns that arise at home. Special discussion: Based on the history and exam findings, there is no indication for further emergent testing or inpatient evaluation. I discussed with the patient/guardian the need to see the neurologist for further evaluation of the symptoms. I discussed with the patient/guardian the need to see the primary care provider for further evaluation of the symptoms. 01/22 18:31 Order name: Flu; Complete Time: 19:02 snw 01/22 19:11 Order name: Glucose, Ancillary Testing; Complete Time: 19:14 EDMS 01/22 18:26 Order name: Adiit. Order: Please print reports from yesterday and see if urine culture snw results are returning 01/22 18:31 Order name: CT Head Brain wo Cont; Complete Time: 19:02 snw 01/22 19:55 Order name: Blood Pressure Recheck; Complete Time: 20:46 snw 01/22 20:48 Order name: Aditi. Order: ambulate pt in ED; Complete Time: 22:01 snw Administered Medications: 21:12 Drug: Losartan 50 mg Route: PO; mg2 22:04 Follow up: Response: No adverse reaction; Blood pressure is lowered ea 22:01 Drug: Antivert 50 mg Route: PO; ea 22:04 Follow up: Response: Medication administered at discharge. ea Disposition: 01/22/19 21:56 Discharged to Home. Impression: Dizziness and giddiness, Unspecified abnormalities of gait and mobility. - Condition is Stable. - Discharge Instructions: Dizziness, Fall Prevention in the Home, Hypertension, Vertigo, Rehydration, Elderly. - Prescriptions for Antivert 25 mg Oral Tablet - take 1 tablet by ORAL route every 8 hours As needed; 20 tablet. - Medication Reconciliation Form, Thank You Letter, Antibiotic Education, Prescription Opioid Use form. - Follow up: Bud Sharif DO; When: 2 - 3 days; Reason: Recheck today's complaints, Continuance of care, Re-evaluation by your physician. Follow up: Emergency Department; When: As needed; Reason: Worsening of condition. Addendum: 01/26/2019 07:36 Co-signature as Attending Physician, Myke Gee MD. r n Signatures: Dispatcher [employer] EDIN Pattie Shah, VULCANIZING PRESS OPERATOR-C VULCANIZING PRESS OPERATOR-Csnw Myke Gee MD MD rn Baxter, Heather, RN RN hb Antunez, Elena, RN RN ea Gardose, Michele, RN RN mg2 Guzman, Adan ag4 Corrections: (The following items were deleted from the chart) 01/22 22:27 21:56 01/22/2019 21:56 Discharged to Home. Impression: Dizziness and giddiness; ag4 Unspecified abnormalities of gait and mobility. Condition is Stable. Forms are Medication Reconciliation Form, Thank You Letter, Antibiotic Education, Prescription Opioid Use. Follow up: Bud Sharif; When: 2 - 3 days; Reason: Recheck today's complaints, Continuance of care, Re-evaluation by your physician. Follow up: Emergency Department; When: As needed; Reason: Worsening of condition. william
[2019-01-22] MEDS ORDERED: MECLIZINE HCL 12.5 MG TAB ONE (22:09)
[2019-01-22 23:26] VITALS: TEMP 98.5
[2019-01-22 23:28] VITALS: O2SAT 100
[2019-01-22 23:31] VITALS: BP 131/79
== END 2019-01-22 22:27 | disposition home or self-care (01) ==
LOC: ER 17:44
DX: R42 Dizziness and giddiness (principal); R26.9 Unspecified abnormalities of gait and mobility; R51 Headache; Z88.6 Allergy status to analgesic agent
CPT/HCPCS: 70450; 82962; 87804; 99284

== ENCOUNTER 2019-05-29 10:18 | Emergency (ER) | payer OTHER ==
--- OUTSIDE RECORDS SUMMARY | 2019-05-29 10:20 | XMS REPORT ---
:1945 [facility] Address [address] [place] [address] [address] [place] [address] Care Team Providers Name Role Phone ADRIANA LANCE Unavailable Unavailable Problems This patient has no known problems. Allergies, Adverse Reactions, Alerts This patient has no known allergies or adverse reactions. Medications This patient has no known medications. Results Test Description Test Time Test Comments Text Results Atomic Results Result Comments TISSUE EXAM 2019-01-21 16:48:00 Surgical Pathology Report Case: [id number] Authorizing Provider: Adriana Lance Collected: 01/15/2019 154Kandace Reveles MD Ordering Location: [facility] Endoscopy Received: 01/16/2019 0816 Services Pathologist: Yudi Macdonald MD Specimen: Polyp, Duodenum DUODENUM, POLYPECTOMY- BRO GLAND HAMARTOMA (SIZE 8 CM)- CAUTERIZED MARGIN, NEGATIVE FOR LESION- FOCAL NON-NECROTIZING EPITHELIOID GRANULOMA Signing Pathologist Direct Phone Line: [phone] signed by Yudi Macdonald MD on 01/21/2019 at 4:48 [id number] lesion Duodenal polyp The specimen is received [...] stains. Immunohistochemistry technical testing was performed at [facility], Pathology Laboratory where it was developed [...] Item Value Reference Range Comments POC-GLUCOSE METER ([employer]) (test 215 mg/dL 70-110 TESTED AT [facility] [address] [place] [address] [id number]) [facility] [address] POCT-GLUCOSE [id number] 14:15:00 Test Item Value Reference Range Comments POC-GLUCOSE METER ([employer]) 157 mg/dL 70-110 TESTED AT [address] (test [id number]) [facility] [address]
--- OUTSIDE RECORDS SUMMARY | 2019-05-29 10:20 | XMS REPORT | Clinical Summary ---
:1945 Author Organization [facility] Address [address] [place] [address] Care Team Providers Name Role Phone Bud [...] injection (two) times daily before meals. UNKNOWN [place] 3 daily, B 0 Active complex vitamins daily . Active Problems Not on file Encounters Date Type Specialty Care Team Description 01/15/2019 Anesthesia Event Gastroenterology Prabhjot Flores MD 01/15/2019 Surgery Gastroenterology Adriana Lance MD ENDOSCOPY,MUCOSAL RESECTION 01/15/2019 Hospital Encounter Gastroenterology Adriana Lance MD 12/21/2018 Hospital Encounter [facility] Phone after 05/28/2018 Social History Tobacco Use Types Packs/Day Years [...] Taken Blood Pressure 128/72 01/15/2019 5:00 PM BRUSH MACHINE SETTER Pulse 73 01/15/2019 5:00 PM BRUSH MACHINE SETTER Temperature 36.2 C (97.2 F) 01/15/2019 5:00 PM BRUSH MACHINE SETTER Respiratory Rate 17 01/15/2019 5:00 PM BRUSH MACHINE SETTER Oxygen Saturation 97% 01/15/2019 5:00 PM BRUSH MACHINE SETTER Inhaled Oxygen Concentration - - Weight 121.3 kg (267 lb 6.4 oz) 01/15/2019 2:03 PM BRUSH MACHINE SETTER Height 175.3 cm (5' 9") 01/15/2019 2:03 PM BRUSH MACHINE SETTER Body Mass Index 39.49 01/15/2019 2:03 PM BRUSH MACHINE SETTER Plan of Treatment Not on file Procedures Procedure Name Priority Date/Time Associated Comments Diagnosis REPORT OF PROCEDURE 01/15/2019 4:13 - ENDOSCOPY URL PM BRUSH MACHINE SETTER POCT-GLUCOSE METER Routine 01/15/2019 4:05 Results for this PM BRUSH MACHINE SETTER procedure are in the results section. TISSUE EXAM AP Routine 01/15/2019 3:43 Results for this PM BRUSH MACHINE SETTER procedure are in the results section. POCT-GLUCOSE METER Routine 01/15/2019 2:11 Results for this PM BRUSH MACHINE SETTER procedure are in the results section. UPPER 01/15/2019 1:00 Gastric lesion ENDOSCOPY,MUCOSAL PM BRUSH MACHINE SETTER RESECTION after 05/28/2018 Results REPORT OF PROCEDURE - ENDOSCOPY URL (01/15/2019 4:13 PM BRUSH MACHINE SETTER) Narrative Performed At POC-Glucose meter (01/15/2019 4:05 PM BRUSH MACHINE SETTER)Only the most recent of2 resultswithin the time period is included. POC-Glucose Meter 215 (H)Comment: TESTED AT 70 - 110 mg/dL [facility] [address] [facility] [address] Specimen Blood Performing Organization Address City/State/Zipcode Phone Number [facility] [address] [place] [address] [phone] CENTER Tissue Exam (01/15/2019 3:43 PM BRUSH MACHINE SETTER) Case Report Surgical Pathology Report Case: [id number] [facility] Authorizing Provider:Adriana Lance Collected: 01/15/2019 1543 [facility] MD Abdirizak Ordering Location: [facility] Endoscopy Received: 01/16/2019 0816 Services Pathologist: Yudi Macdonald MD Specimen:Polyp, Duodenum DIAGNOSIS DUODENUM, POLYPECTOMY [facility] - BRO GLAND HAMARTOMA (SIZE 8 CM) [facility] - CAUTERIZED MARGIN, NEGATIVE FOR LESION - FOCAL NON-NECROTIZING EPITHELIOID GRANULOMA Signing Pathologist Direct Phone Line: [phone] CPT Code(s) 24155, 25484 x2 [facility] CLINICAL HISTORY Gastric lesion [facility] SPECIMEN SOURCE Duodenal polyp [facility] GROSS DESCRIPTION The specimen is received in a [facility] formalin-filled container [facility] labeled with the patient's information and labeled [...] likely representing a reactive change. No dys [facility] plasia is seen. The duodenal mucosa shows foci of gastric metaplasia. [facility] AFB and GMS stains are negative for micro-organisms. SPECIAL STUDIES The interpretation of this case included the use of immunohistochemistry or special stains. [facility] Immunohistochemistry technical testing was performed at [facility], Pathology Laboratory where it was [...] Duodenum Performing Organization Address City/State/Zipcode Phone Number [facility] [address] [place] [address] CENTER after 05/28/2018 Insurance Payer Benefit Plan / Group Subscriber ID Type Phone Address MEDICARE MEDICARE A B xxxxxxxxxxx Medicare MEDICAID MEDICAID [place] xxxxxxxxx Medicaid ([place]) [place] [address]
--- NOTE | 2019-05-29 11:38 | RAD REPORT ---
EXAM DESCRIPTION: RAD - Knee Left 3 View - 05/29/2019 11:30 am CLINICAL HISTORY: PAIN COMPARISON: <Comparisons> FINDINGS: Moderate osteoarthritis involves the medial joint compartment with small osteophytes prese nt in the joint space loss seen. No fracture, dislocation suprapatellar joint effusion.
--- NOTE | 2019-05-29 12:26 | ER ---
Nurse's Notes [facility] Name: Weston Garcia Age: 74 yrs Sex: Male : 1945 Arrival Date: 05/29/2019 Time: 10:20 Bed 28 Private MD: Diagnosis: Internal derangement of knee Presentation: 05/29 10:28 Presenting complaint: Child states: 4-5 days ago, he fell in the restroom and hurt his hj L knee; pain si 8/10; denies swelling; denies hitting head and LOC:. Transition of care: patient was not received from another setting of care. Onset of symptoms was May 29, 2019. Risk Assessment: Do you want to hurt yourself or someone else? Patient reports no desire to harm self or others. Initial Sepsis Screen: Does the patient meet any 2 criteria? No. Patient's initial sepsis screen is negative. Does the patient have a suspected source of infection? No. Patient's initial sepsis screen is negative. Care prior to arrival: None. 10:28 Method Of Arrival: Ambulatory 10:28 Acuity: GIRISH 4 hj Historical: - Allergies: 10:30 Naproxen; hj - PMHx: 10:30 CVA; Diabetes - NIDDM; Hypertension; hj - PSHx: 10:30 Appendectomy; cataract; hj - Immunization history:: Adult Immunizations unknown. - Social history:: Smoking status: Patient/guardian denies using tobacco. - Ebola Screening: : No symptoms or risks identified at this time. Screenin:35 Abuse screen: Denies threats or abuse. Nutritional screening: No deficits noted. aa5 Tuberculosis screening: No symptoms or risk factors identified. Fall Risk Fall in past 12 months (25 points). Secondary diagnosis (15 points) impaired mobility, Ambulatory Aid- Crutches/Cane/Walker (15 pts). Total Zapien Fall Scale indicates High Risk Score (45 or more points). Fall prevention measures have been instituted. Side Rails Up X 2 Placed Close to Nursing Station Family Present and informed to notify staff if the need to leave the bedside. Assessment: 11:30 General: Appears comfortable, Behavior is calm, cooperative. Pain: Complains of pain in aa5 left knee Pain does not radiate. Pain currently is 0 out of 10 on a pain scale. Quality of pain is described as sharp, Pain began post fall, 3-4 days ago. Pt reports pain to left knee only with movement. Neuro: Level of Consciousness is awake, alert, obeys commands, Oriented to person, place, time, situation. Cardiovascular: Heart tones S1 S2 present Patient's skin is warm and dry. Rhythm is regular. Respiratory: Airway is patent Respiratory effort is even, unlabored, Respiratory pattern is regular, symmetrical. GI: No signs and/or symptoms were reported involving the gastrointestinal system. : No signs and/or symptoms were reported regarding the genitourinary system. EENT: No signs and/or symptoms were reported regarding the EENT system. Derm: Skin is pink, warm \\T\\ dry. Musculoskeletal: Range of motion: intact in all extremities, Reports pain in left knee. 11:30 Reassessment: Pt states "I have bad knees so I fall frequently and about 3 or 4 days aa5 ago I walked outside and lost my balance and fell". 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 Dunbar (orthopedic) for knee pain. . 12:00 Reassessment: Patient is alert, oriented x 3, equal unlabored respirations, skin aa5 warm/dry/pink. Patient denies pain at this time. Awaiting x-ray results. . 13:30 Reassessment: Knee immobilizer applied to left knee . aa5 13:35 Reassessment: Patient is alert, oriented x 3, equal unlabored respirations, skin aa5 warm/dry/pink. Vital Signs: 10:30 BP 112 / 53; Pulse 75; Resp 18; Temp 98.3(TE); Pulse Ox 97% on R/A; Weight 122.47 kg; Height 6 ft. 0 in. (182.88 cm); Pain 8/10; 11:35 BP 144 / 90; Pulse 75; Resp 16 S; Pulse Ox 97% on R/A; Pain 0/10; aa5 12:45 BP 145 / 79; Pulse 69; Resp 18 S; Pulse Ox 98% on R/A; aa5 13:30 BP 115 / 59; Pulse 66; Resp 18 S; Pulse Ox 97% on R/A; Pain 0/10; aa5 10:30 Body Mass Index 36.62 (122.47 kg, 182.88 cm) ED Course: 10:20 Patient arrived in ED. as 10:30 Triage completed. hj 10:30 Arm band placed on left wrist. hj 11:12 Patient moved to radiology via wheelchair. 11:22 Jelani De Souza PA is PHCP. [facility] 11:22 Myke Gee MD is Attending Physician. [facility] 11:28 Leena Muñoz, RN is Primary Nurse. aa5 11:28 X-ray completed. Patient tolerated procedure well. Note: PT TAKEN TO BED 28. Patient ml moved back from radiology. 11:30 Patient has correct armband on for positive identification. Bed in low position. Call aa5 light in reach. Side rails up X2. Adult w/ patient. 11:32 Knee Left 3 View XRAY In Process Unspecified. EDMS 12:26 Panda Dunbar MD is Referral Physician. [facility] 13:35 No provider procedures requiring assistance completed. Patient did not have IV access aa5 during this emergency room visit. Administered Medications: No medications were administered Outcome: 12:26 Discharge ordered by . [facility] 13:35 Discharged to home via wheelchair, with family. aa5 13:35 Condition: stable 13:35 Discharge instructions given to patient, family, Instructed on discharge instructions, follow up and referral plans. medication usage, Demonstrated understanding of instructions, follow-up care, medications, Prescriptions given X 1. 13:42 Patient left the ED. aa5 Signatures: Dispatcher [employer] EDMS Jelani De Souza PA PA [facility] Kelle Castrejon Melissa Leena Muñoz, RN RN aa5 Remington Briceno RN RN Corrections: (The following items were deleted from the chart) 10:33 10:30 Pulse 75bpm; Resp 18bpm; Pulse Ox 97% RA; Temp 98.3F Temporal; 122.47 kg; Height hj 6 ft. 0 in.; BMI: 36.6; Pain 8/10; hj
--- NOTE | 2019-05-29 12:27 | EDPHYS ---
Physician Documentation [facility] Name: Weston Garcia Age: 74 yrs Sex: Male : 1945 Arrival Date: 05/29/2019 Time: 10:20 Bed 28 Private MD: ED Physician Myke Gee HPI: 05/29 10:35 This 74 yrs old Male presents to ER via Ambulatory with complaints of Knee jmm Pain. 10:35 The patient presents with an injury, pain. Onset: The symptoms/episode began/occurred jmm acutely, 4 day(s) ago. Modifying factors: The symptoms are alleviated by elevating leg, the symptoms are aggravated by weight bearing. This is a 74 year old male with a history of dm, htn that presents to the ED with complaints of left knee pain after a fall which occurred 4 days ago.. Patient states having increased falls which he attributes to a drop in his blood pressure. Patient was seen by his house player for this. Patient currently denies weakness, denies chest pain, denies shortness of breath. . Historical: - Allergies: 10:30 Naproxen; hj - PMHx: 10:30 CVA; Diabetes - NIDDM; Hypertension; hj - PSHx: 10:30 Appendectomy; cataract; hj - Immunization history:: Adult Immunizations unknown. - Social history:: Smoking status: Patient/guardian denies using tobacco. - Ebola Screening: : No symptoms or risks identified at this time. ROS: 10:35 Constitutional: Negative for fever, chills, and weight loss, Cardiovascular: Negative jmm for chest pain, palpitations, and edema, Respiratory: Negative for shortness of breath, cough, wheezing, and pleuritic chest pain. 10:35 MS/extremity: Positive for injury or acute deformity, pain. 10:35 All other systems are negative. Exam: 10:35 Constitutional: This is a well developed, well nourished patient who is awake, alert, jmm and in no acute distress. Head/Face: atraumatic. Eyes: EOMI, no conjunctival erythema appreciated ENT: Moist Mucus Membranes Neck: Trachea midline, Supple Chest/axilla: Normal chest wall appearance and motion. Cardiovascular: Regular rate and rhythm. No edema appreciated Respiratory: Normal respirations, no respiratory distress appreciated Abdomen/GI: Non distended, soft 10:35 Musculoskeletal/extremity: ROM: intact in all extremities, FROM apprciated to the left knee, compartments are soft, full dorsalis pulse, NVI. 10:35 Skin: Appearance: Color: normal in color. 10:35 Neuro: Orientation: is normal, Mentation: is normal, Memory: is normal. 10:35 Psych: Behavior/mood is pleasant, cooperative. Vital Signs: 10:30 BP 112 / 53; Pulse 75; Resp 18; Temp 98.3(TE); Pulse Ox 97% on R/A; Weight 122.47 kg; hj Height 6 ft. 0 in. (182.88 cm); Pain 8/10; 11:35 BP 144 / 90; Pulse 75; Resp 16 S; Pulse Ox 97% on R/A; Pain 0/10; aa5 12:45 BP 145 / 79; Pulse 69; Resp 18 S; Pulse Ox 98% on R/A; aa5 13:30 BP 115 / 59; Pulse 66; Resp 18 S; Pulse Ox 97% on R/A; Pain 0/10; aa5 10:30 Body Mass Index 36.62 (122.47 kg, 182.88 cm) MDM: 11:33 Patient medically screened. [facility] 12:25 Data reviewed: vital signs, nurses notes. Counseling: I had a detailed discussion with eduardo the patient and/or guardian regarding: the historical points, exam findings, and any diagnostic results supporting the discharge/admit diagnosis, radiology results, the need for outpatient follow up, to return to the emergency department if symptoms worsen or persist or if there are any questions or concerns that arise at home. ED course: Xray does not show an acute injury fracture. Patient is advised to follow up with his ortho for reevaluation. patient is otherwise given strict return precautions. patient understood and agrees with the plan of care. . 05/29 10:33 Order name: Knee Left 3 View XRAY; Complete Time: 11:59 05/29 12:00 Order name: Knee Immobilizer; Complete Time: 13:41 [facility] Administered Medications: No medications were administered Disposition: 15:58 Co-signature as Attending Physician, Myke Gee MD. rn Disposition: 05/29/19 12:26 Discharged to Home. Impression: Internal derangement of knee. - Condition is Stable. - Discharge Instructions: Knee Pain. - Prescriptions for Ultracet 37.5- 325 mg Oral Tablet - take 1 tablet by ORAL route every 6 hours - for up to 5 days; do not exceed 8 tablets per day.; 12 tablet. - Medication Reconciliation Form, Thank You Letter, Antibiotic Education, Prescription Opioid Use form. - Follow up: Panda Dunbar MD; When: 2 - 3 days; Reason: Recheck today's complaints, Continuance of care, Re-evaluation by your physician. Signatures: Dispatcher [employer] EDMS Jelani De Souza PA PA jmm Myke Gee MD MD rn Leena Muñoz RN RN aa5 Remington Briceno RN RN hj Corrections: (The following items were deleted from the chart) 13:42 12:26 05/29/2019 12:26 Discharged to Home. Impression: Internal derangement of knee. aa5 Condition is Stable. Forms are Medication Reconciliation Form, Thank You Letter, Antibiotic Education, Prescription Opioid Use. Follow up: Dr. Panda Dunbar; When: 2 - 3 days; Reason: Recheck today's complaints, Continuance of care, Re-evaluation by your physician. corby
[2019-05-29 15:08] VITALS: TEMP 98.3
[2019-05-29 15:09] VITALS: BP 145/79; O2SAT 98
== END 2019-05-29 13:42 | disposition home or self-care (01) ==
LOC: ER 10:18
DX: M23.92 Unspecified internal derangement of left knee (principal); Z86.73 Personal history of transient ischemic attack (TIA), and cerebral infarction without residual deficits; E11.9 Type 2 diabetes mellitus without complications; I10 Essential (primary) hypertension

== ENCOUNTER → 2019-06-18 | Day surgery (SDC) | payer OTHER ==
[2019-06-17 16:38] LABS: Absolute Lymphocytes (CBC) 1.5 K/uL (0.7-4.9); Basophils % 0.3 % (0-1.3); Hematocrit 46.6 % (39.6-49.0); Lymphocytes % 24.6 % (15.3-44.8); MPV 8.2 fL (7.6-11.3); RBC Red Blood Cell Count 4.94 M/uL (4.33-5.43)
[2019-06-17 16:41] LABS: Protime INR 0.96
[2019-06-17 16:45] LABS: Potassium 4.5 mmol/L (3.5-5.1)
--- NOTE | 2019-06-17 17:04 | RAD REPORT ---
EXAM DESCRIPTION: Bill Howard And Aleshia (2 Views)06/17/2019 4:40 pm CLINICAL HISTORY: Preop cardiac catheterization COMPARISON: January 2019 FINDINGS: The lungs appear clear of acute infiltrate. The heart is mildly enlarged IMPRESSION: No acute abnormalities displayed
[~2019-06-18] MED LIST: ATROPINE SULF 1 MG/10 ML SYR IV ONE; FENTANYL CITR 100 MCG/2 ML ONE; HEPA 1000U/500MLS 1,000 UNIT/500 ML BAG IV ONE; LIDOCAINE 1% MPF 30 ML VIAL ONE; MIDAZOLAM HCL 2 MG/2 ML INJ ONE; NA CHLORIDE 0.9% 0 ML ONE; NA CHLORIDE 0.9% 500 ML ONE
--- OUTSIDE RECORDS SUMMARY | 2019-06-18 06:18 | XMS REPORT | Clinical Summary ---
:1945 Author Organization [facility] Address [address] [place] [address] Care Team Providers Name Role Phone Bud [...] injection (two) times daily before meals. UNKNOWN [place] 3 daily, B 0 Active complex vitamins daily . Active Problems Not on file Encounters Date Type Specialty Care Team Description 01/15/2019 Anesthesia Event Gastroenterology Prabhjot Flores MD 01/15/2019 Surgery Gastroenterology Adriana Lance MD ENDOSCOPY,MUCOSAL RESECTION 01/15/2019 Hospital Encounter Gastroenterology Adriana Lance MD 12/21/2018 Hospital Encounter Pre-Admission Testing Resource, [facility] Preadmit Phone after 06/17/2018 Social History Tobacco Use Types Packs/Day Years [...] Taken Blood Pressure 128/72 01/15/2019 5:00 PM GENERAL COUNSEL Pulse 73 01/15/2019 5:00 PM GENERAL COUNSEL Temperature 36.2 C (97.2 F) 01/15/2019 5:00 PM GENERAL COUNSEL Respiratory Rate 17 01/15/2019 5:00 PM GENERAL COUNSEL Oxygen Saturation 97% 01/15/2019 5:00 PM GENERAL COUNSEL Inhaled Oxygen Concentration - - Weight 121.3 kg (267 lb 6.4 oz) 01/15/2019 2:03 PM GENERAL COUNSEL Height 175.3 cm (5' 9") 01/15/2019 2:03 PM GENERAL COUNSEL Body Mass Index 39.49 01/15/2019 2:03 PM GENERAL COUNSEL Plan of Treatment Not on file Procedures Procedure Name Priority Date/Time Associated Comments Diagnosis REPORT OF PROCEDURE 01/15/2019 4:13 - ENDOSCOPY URL PM GENERAL COUNSEL POCT-GLUCOSE METER Routine 01/15/2019 4:05 Results for this PM GENERAL COUNSEL procedure are in the results section. TISSUE EXAM AP Routine 01/15/2019 3:43 Results for this PM GENERAL COUNSEL procedure are in the results section. POCT-GLUCOSE METER Routine 01/15/2019 2:11 Results for this PM GENERAL COUNSEL procedure are in the results section. UPPER 01/15/2019 1:00 Gastric lesion ENDOSCOPY,MUCOSAL PM GENERAL COUNSEL RESECTION after 06/17/2018 Results REPORT OF PROCEDURE - ENDOSCOPY URL (01/15/2019 4:13 PM GENERAL COUNSEL) Narrative Performed At POC-Glucose meter (01/15/2019 4:05 PM GENERAL COUNSEL)Only the most recent of2 resultswithin the time period is included. POC-Glucose Meter 215 (H)Comment: TESTED AT 70 - 110 mg/dL [facility] [address] [facility] [id number] Specimen Blood Performing Organization Address City/State/Zipcode Phone Number [facility] [address] [place] [address] CENTER Tissue Exam (01/15/2019 3:43 PM GENERAL COUNSEL) Case Report Surgical Pathology Report Case: [id number] [facility] Authorizing Provider:Adriana Lance Collected: 01/15/[address] [facility] MD Abdirizak Ordering Location: [facility] Endoscopy Received: 01/16/2019 0816 Services Pathologist: Yudi Macdonald MD Specimen:Polyp, Duodenum DIAGNOSIS DUODENUM, POLYPECTOMY [facility] - BRO GLAND HAMARTOMA (SIZE 8 [address]) [facility] - CAUTERIZED MARGIN, NEGATIVE FOR LESION - FOCAL NON-NECROTIZING EPITHELIOID GRANULOMA Signing Pathologist Direct Phone Line: [phone] CPT Code(s) 79945, 77352 x2 [facility] CLINICAL HISTORY Gastric lesion [facility] SPECIMEN SOURCE Duodenal polyp [facility] GROSS DESCRIPTION The specimen is received in a [facility] formalin-filled container [facility] labeled with the patient's information and labeled [...] likely representing a reactive change. No dys [facility] plasia is seen. The duodenal mucosa shows foci of gastric metaplasia. [facility] AFB and GMS stains are negative for micro-organisms. SPECIAL STUDIES The interpretation of this case included the use of immunohistochemistry or special stains. [facility] Immunohistochemistry technical testing was performed at [facility], Pathology Laboratory where it was developed [...] Duodenum Performing Organization Address City/State/Zipcode Phone Number [facility] [address] [place] [address] [phone] CENTER after 06/17/2018 Insurance Payer Benefit Plan / Group Subscriber ID Type Phone Address MEDICARE MEDICARE A B xxxxxxxxxxx Medicare MEDICAID [place]ICAID [place] xxxxxxxxx Medicaid ([place]) [place] [address]
--- OUTSIDE RECORDS SUMMARY | 2019-06-18 06:18 | XMS REPORT ---
:1945 Author Organization [facility] Address [address] [place] [address] [address] [place] [address] Care Team Providers Name Role Phone ADRIANA LANCE Unavailable Unavailable Problems This patient has no known problems. Allergies, Adverse Reactions, Alerts This patient has no known allergies or adverse reactions. Medications This patient has no known medications. Results Test Description Test Time Test Comments Text Results Atomic Results Result Comments TISSUE EXAM 2019-01-21 16:48:00 Surgical Pathology Report Case: [id number] Authorizing Provider: Adriana Lance Collected: 01/15/2019 154Kandace Reveles MD Ordering Location: [facility] Endoscopy Received: 01/16/2019 0816 Services Pathologist: Yudi Macdonald MD Specimen: Polyp, Duodenum DUODENUM, POLYPECTOMY- BRO [place]AND [place]OMA (SIZE 8 CM)- CAUTERIZED MARGIN, NEGATIVE FOR LESION- FOCAL NON-NECROTIZING EPITHELIOID GRANULOMA Signing Pathologist Direct Phone Line: [phone] signed by Yudi Macdonald MD on 01/21/2019 at 4:48 [id number], [id number] lesion Duodenal polyp The specimen is received [...] stains. Immunohistochemistry technical testing was performed at [facility], Pathology Laboratory where it was [...] Item Value Reference Range Comments POC-GLUCOSE METER ([facility]) (test 215 mg/dL 70-110 TESTED AT [facility] [address] [place] [address] ttmg=7814) [facility] [address] POCT-GLUCOSE [id number] 14:15:00 Test Item Value Reference Range Comments POC-GLUCOSE METER ([employer]) 157 mg/dL 70-110 TESTED AT [address] (test uoth=5784) [facility] [id number]
[2019-06-18 10:03] VITALS: BP 150/78; TEMP 98; O2SAT 94
--- NOTE | 2019-06-18 19:32 | OP ---
Date of Procedure: 06/18/2019 Surgeon: Mehrdad Aguirre MD Client Service And Consulting Manager: Nato King. Procedure: Left heart catheterization with selective coronary arteriogram. Indication. Chest: Pain, coronary artery disease, and a positive stress test. History Of Present Illness: Mr. Garcia is a 74-year-old male, who had a history of RCA stents befo re and chest pain, positive stress test with inferior ischemia, scheduled for outpatient heart cathet erization today 06/18/2019. He was brought to the laboratory immunologist as an outpatient, prepped and draped in t he routine sterile fashion. Given 1 mg of Versed and 50 of fentanyl for sedation. Right common femo ral artery access obtained with a 6-Maori sheath. Angio-Seal was used to close the case. A 6-Frenc h Tacho catheter left and right was used to do the coronary angiography. He was found to have abou t 60% diagonal diffuse plaquing in the OM circumflex and LAD throughout without any significant focal stenosis. RCA stents were all open. He had about 30% to 40% mid RCA stenosis. Complications: There were no complications. Blood Loss: 5 cc. Anesthesia: Total conscious sedation was 30 minutes. Final Diagnosis: Moderate coronary artery disease. Plan: Plan is for medical therapy. The patient will be going home today. He will see me in the off ice in 2 weeks. He will hold his metformin for 48 hours. DULCE/EARL Voice ID: [id number] Report ID: [id number]
== END | disposition home or self-care (01) ==
LOC: CCL 06:16
DX: I25.10 Atherosclerotic heart disease of native coronary artery without angina pectoris (principal); I70.209 Unspecified atherosclerosis of native arteries of extremities, unspecified extremity; I25.5 Ischemic cardiomyopathy; I10 Essential (primary) hypertension; G62.9 Polyneuropathy, unspecified; E11.9 Type 2 diabetes mellitus without complications; N40.0 Benign prostatic hyperplasia without lower urinary tract symptoms; K21.9 Gastro-esophageal reflux disease without esophagitis; Z95.5 Presence of coronary angioplasty implant and graft; Z87.891 Personal history of nicotine dependence; Z88.8 Allergy status to other drugs, medicaments and biological substances; Z79.02 Long term (current) use of antithrombotics/antiplatelets; Z79.82 Long term (current) use of aspirin; Z79.4 Long term (current) use of insulin; Z82.49 Family history of ischemic heart disease and other diseases of the circulatory system
CPT/HCPCS: 85025; 80048; 36415; 85610; 82962; 85730; 71046; 93454; C1893; C1760; J2250; J3010; J0583